=== PATIENT | female | born 1990 | race Caucasian/White ===

== ENCOUNTER 2025-01-23 18:12 | Emergency (ER) | payer OTHER, SELFPAY ==
--- NOTE | ~2025-01-23 | CT_ITS ---
CT abdomen pelvis w con Clinical History: RLQ abdominal pain . Comparison: None Technique: Axial images lung bases to symphysis pubis 100 mL Omnipaque 350 Coronal, sagittal reformats CT images acquired with automatic exposure control for dose reduction DLP: 1363 mGy-cm Findings: Lung bases: Clear. Visualized heart and pericardium: Unremarkable. Liver: Steatosis. Gallbladder: Removed. Spleen: Unremarkable. Pancreas: Unremarkable. Adrenal glands: Unremarkable. Kidneys: Right kidney- No hydronephrosis. No renal stones. Left kidney- No hydronephrosis. No renal stones. Distal esophagus/stomach: Unremarkable. Small bowel loops: Normal caliber and wall thickness. Colon: Normal caliber and wall thickness. Appendectomy. Nodes: No enlarged nodes. Peritoneum: No ascites. No free air. Urinary bladder: Unremarkable. Uterus: Unremarkable. Adnexa: No masses. Small cyst right side. Bones: No acute bony abnormality. Soft tissues: Unremarkable. Aorta: No aneurysm or dissection. IVC: Unremarkable. Main portal vein/SMV/splenic vein: Patent. IMPRESSION: 1. No acute findings. Reviewed, dictated and finalized at location [facility]. [facility] [employer] IMPRESSION: 1. No acute findings.
[2025-01-23 18:18] VITALS: BP 143/99; PULSE 87; RESP 16; TEMP 36.6; O2SAT 99
[2025-01-23 18:49] VITALS: BP 145/92; PULSE 74; RESP 20; O2SAT 98
[2025-01-23 18:53] LABS: BEDSIDEPREGUCG Negative (Negative)
[2025-01-23 18:54] LABS: Hematocrit 42.1 % (37.0-47.0); Hemoglobin 13.8 g/dL (12.0-15.0); Immature Granulocyte Percent A 0.2 % (0-0.5); Lymphocytes Absolute Auto 3.28 K/mm3 (0.9-3.2); Mean Corpuscular HGB Conc 32.8 g/dl (32-36); Mean Corpuscular Hemoglobin 27.7 pg (26-34); Mean Corpuscular Volume 84.5 fl (80-100); Nucleated Red Blood Cells Absolute Auto 0.000 K/mm3 (0.0-0.012); Nucleated Red Blood Cells Perc 0.0 % (0.0-0.2); Platelet Count Result 318 k/mm3 (150-375); Red Blood Count 4.98 M/mm3 (4.2-5.4); White Blood Count 9.5 K/mm3 (4.5-10.0)
[2025-01-23 18:59] LABS: Add Urine Microscopic? NO; Appearance Urine Clear (Clear); Glucose Urine UA Negative (Negative); Leukocyte Esterase Ur Negative LEU/UL (Negative); Nitrate Urine Negative (Negative); Specific Grav Ur 1.005 (1.001-1.035)
[2025-01-23 19:07] LABS: Alanine Aminotransferase 22 U/L (6-35); Albumin Level 4.5 g/dL (3.5-5.1); Alkaline Phosphatase 55 U/L (38-126); Anion Gap 8 mmol/L (4-12); Aspartate Amino Transferase 20 U/L (14-36); Bilirubin,Total 0.4 mg/dL (0.2-1.3); Blood Urea Nitrogen 10 mg/dL (7-17); Calcium 9.2 mg/dL (8.4-10.2); Carbon Dioxide 24 mmol/L (22-30); Chloride 107 mmol/L (98-107); Estimated CRCL calculation 106 ml/min; Estimated Glomerular Filt Rate > 60; Glucose 94 mg/dL (65-110); Lipase 66 U/L (23-300); Potassium 4.3 mmol/L (3.4-5.0); Sodium 139 mmol/L (137-145); Total Protein 7.6 g/dL (6.3-8.2)
--- NOTE | 2025-01-23 19:45 | ED.ABDPAIN ---
HPI - Abdominal Pain General Chief Complaint: Abdominal Pain Stated Complaint: abd pain Time Seen by Provider: 01/23/25 18:53 History of Present Illness HPI narrative: Patient is a 34-year-old female who presents to the ER with abdominal pain. She reports she has chronic stomach pain but it became severe this morning. Patient reports she took Tylenol, Zofran, promethazine, and Bentyl today without much relief. She endorses a history of fibromyalgia, hypothyroidism, and irritable bowel syndrome. Patient denies any marijuana or alcohol use. She also denies any vomiting, recent fevers, or urgency/burning with urination. Related Data Allergies Allergy/AdvReac Type Severity Reaction Status Date / Time propranolol AdvReac Intermediate Rash Verified 01/23/25 18:14 quetiapine (From Seroquel) AdvReac Intermediate Rash Verified 01/23/25 18:14 Review of Systems Review of Systems: All systems reviewed & are unremarkable except as noted in HPI and below Exam Narrative: GENERAL: Well appearing, obese, non-toxic, in no acute distress. HEAD: Normocephalic, atraumatic. NECK: Supple. No adenopathy, no masses. RESPIRATORY: Airway patent, respirations nonlabored. Clear to auscultation bilaterally, no rales, rhonchi, wheezing. CARDIOVASCULAR: Regular rate and rhythm without murmurs, rubs, or gallops. Peripheral pulses 2+ and equal bilaterally. ABDOMINAL: Soft, generalized tenderness, nondistended. Normoactive BS. MUSCULOSKELETAL: Moves all extremities. Strength/ROM intact without gross deformities. SKIN: Warm, dry, normal color. No rashes. NEURO: A&O X3. Speech clear. Cranial nerves II-XII intact. No ataxic movements. PSYCHIATRIC: Appropriate mood and affect. Normal interaction. Course Vital Signs Vital signs: Vital Signs Temperature 36.6 C 01/23/25 18:18 Pulse Rate 87 01/23/25 18:18 Respiratory Rate 16 01/23/25 18:18 Blood Pressure 143/99 H 01/23/25 18:18 Pulse Oximetry 99 01/23/25 18:18 Oxygen Delivery Room Air 01/23/25 18:18 Temperature 36.6 C 01/23/25 18:18 Pulse Rate 81 01/23/25 21:11 Respiratory Rate 20 01/23/25 21:11 Blood Pressure 123/86 01/23/25 21:11 Pulse Oximetry 98 01/23/25 21:11 Oxygen Delivery Room Air 01/23/25 18:18 MDM - Abdominal Pain MDM Narrative Medical decision making narrative: Patient is a 34-year-old female who presents to the ER with abdominal pain. She reports she has chronic stomach pain but it became severe this morning. Patient reports she took Tylenol, Zofran, promethazine, and Bentyl today without much relief. She endorses a history of fibromyalgia, hypothyroidism, and irritable bowel syndrome. Patient denies any marijuana or alcohol use. She also denies any vomiting, recent fevers, or urgency/burning with urination. Labs Ordered: CBC, CMP, lipase, UA, drug screen Imaging Ordered: CT abdomen pelvis Medications Ordered: L normal saline IV bolus, morphine 4 mg IV x2, Reglan 10 mg IV, Pepcid 20 mg IV, Benadryl 25 mg, Zofran 8 mg IV, Haldol 5 mg IM Results: Patient's CT scan indicates hepatic steatosis, cholecystectomy, right ovarian cyst measuring 2.2 x 2.3 cm Diagnosis: Acute on chronic abdominal pain Consults: Gastroenterology (outpatient), already established Patient Education/Shared MDM: Results of lab work and imaging shared with patient. She continues to endorse nausea and abdominal pain. It was explained to patient that she could get a repeat dose of narcotics here in the ER but she would not be given a prescription, as it is unclear what is causing her pain. Patient was offered Haldol to treat her nausea and Bentyl for the ongoing abdominal pain. Patient endorses improvement of symptoms following medication administration. Patient strongly advised to maintain hydration status upon discharge and follow-up with her manager sound as soon as possible. She was also advised to follow-up with her OBGYN regarding her ovarian cyst. Patient will be discharged home with a prescription for Reglan. Strict return precautions provided. Patient verbalized understanding and is in agreement with plan. Vital signs stable at time of discharge. All questions answered. Differential Diagnosis Differential diagnosis: Likely abdominal pain, calculus of kidney, constipation, diverticulitis and gastroenteritis Lab Data Attestation: I reviewed the patient's lab results. 01/23/25 18:46 01/23/25 18:46 Labs: Lab Results 11/01/25 11/01/25 11/01/25 Range/Units 18:46 18:49 19:55 WBC 9.5 (4.5-10.0) K/mm3 RBC 4.98 (4.2-5.4) M/mm3 Hgb 13.8 (12.0-15.0) g/dL Hct 42.1 (37.0-47.0) % MCV 84.5 (80-100) fl MCH 27.7 (26-34) pg MCHC 32.8 (32-36) g/dl RDW 13.2 (11.5-14.5) % Plt Count 318 (150-375) k/mm3 MPV 10.6 H (7.4-10.4) fl Immature Gran % (Auto) 0.2 (0-0.5) % Neut % (Auto) 54.1 (45.5-73.1) % Lymph % (Auto) 34.6 (18.3-44.2) % Anderson % (Auto) 9.2 H (2.6-8.5) % Eos % (Auto) 1.3 (0-4.4) % Baso % (Auto) 0.6 (0.2-1.2) % Lymph # (Auto) 3.28 H (0.9-3.2) K/mm3 Anderson # (Auto) 0.9 H (0.1-0.6) K/mm3 Eos # (Auto) 0.1 (0-0.3) K/mm3 Baso # (Auto) 0.1 (0.0-0.1) K/mm3 Abs Immat Gran (auto) 0.02 (0.00-0.031) K/mm3 Absolute Neuts (auto) 5.1 (1.3-6.7) K/mm3 Absolute Nucleated RBC 0.000 (0.0-0.012) K/mm3 Nucleated RBC % 0.0 (0.0-0.2) % Sodium 139 (137-145) mmol/L Potassium 4.3 (3.4-5.0) mmol/L Chloride 107 (98-107) mmol/L Carbon Dioxide 24 (22-30) mmol/L Anion Gap 8 (4-12) mmol/L BUN 10 (7-17) mg/dL Creatinine 0.70 (0.7-1.0) mg/dL Estim Creat Clear Calc 106 ml/min Estimated GFR > 60 (59 - ) Glucose 94 (65-110) mg/dL Calcium 9.2 (8.4-10.2) mg/dL Total Bilirubin 0.4 (0.2-1.3) mg/dL AST 20 (14-36) U/L ALT 22 (6-35) U/L Alkaline Phosphatase 55 (38-126) U/L Total Protein 7.6 (6.3-8.2) g/dL Albumin 4.5 (3.5-5.1) g/dL Lipase 66 (23-300) U/L Urine Color Yellow (Yellow) Urine Appearance Clear (Clear) Urine pH 6.5 (5.0-9.0) Ur Specific Pearson 1.005 (1.001-1.035) Urine Protein Negative (Negative) mg/dL Urine Glucose (UA) Negative (Negative) mg/dL Urine Ketones Negative (Negative) mg/dL Ur Blood (Man) Negative (Negative) Urine Nitrate Negative (Negative) Urine Bilirubin Negative (Negative) Urine Urobilinogen 0.2 (<2.0) mg/dL Leukocyte Esterase Rfl Negative (Negative) VENANCIO/UL POC Urine HCG, Qual Negative (Negative) Urine Opiates Screen Negative (Negative) Urine Methadone Screen Negative (Negative) Ur Barbiturates Screen Negative (Negative) Ur Phencyclidine Scrn Negative (Negative) Ur Amphetamine Screen Negative (Negative) U Benzodiazepines Scrn Negative (Negative) Urine Cocaine Screen Negative (Negative) U Cannabinoids Screen Negative (Negative) Imaging Data Attestation: I personally reviewed and interpreted this imaging study as follows: Radiologist's impression: Patient's CT scan indicates hepatic steatosis, cholecystectomy, right ovarian cyst measuring 2.2 x 2.3 cm Discharge Plan Discharge Clinical Impression: Acute exacerbation of chronic abdominal pain, Nausea & vomiting, Hepatic steatosis, Ovarian cyst, Irritable bowel syndrome (IBS) Patient Disposition: Home Condition: Stable Instructions: Antibiotic Form, Abdominal Pain (ED) Additional Instructions: Please return to the ER with any worsening symptoms. Follow-up with your manager sound as soon as possible. Please follow-up with your OBGYN regarding your ovarian cyst. Take all medications as prescribed, including regularly scheduled medications. You may take Reglan as needed for nausea control. Please remember to drink lots of water. Patient Language: Hungarian Prescriptions: New metoclopramide HCl [Reglan] 10 mg tablet 10 mg PO Q6H PRN (Reason: nausea and vomiting) Qty: 30 0RF Follow-up/Referrals: Shanthi,Tara Darden GALLERY OR MUSEUM TECHNICIAN [Primary Care Provider, Unknown] Time of Disposition: 23:41
[2025-01-23] MEDS: FAMOTIDINE 20 MG/2 ML VIAL IV PUSH (19:57)
[2025-01-23] MEDS: METOCLOPRAMIDE HCL INJ 10 MG/2 ML VIAL IV PUSH (19:57)
[2025-01-23] MEDS: MORPHINE SULFATE (*CRX) 4 MG/ML INJ IV PUSH ×2 (19:57→23:42)
[2025-01-23] MEDS: SODIUM CHLORIDE 0.9% IV 1,000 ML 999 ML IV CONT (19:57)
[2025-01-23 20:02] VITALS: BP 138/94; PULSE 83; RESP 16; O2SAT 98
[2025-01-23 20:23] LABS: Cannabinoid Screen Urine Negative (Negative)
--- OUTSIDE RECORDS SUMMARY | 2025-01-23 21:03 | XMS_ITS | Encounter Summary ---
Author Organization [facility] Address [address] [place] [id number] Care Team Providers Care Algologist Name Role Phone Tara Maki [facility] Primary Care Provider [phone] Encounter Details Date Type Department Care Team (Late st Contact Info) Description 12/16/2024 Results Follow-Up [facility] [address] [place], [place] [id number] Tara Maki [facility] [address] [place] [address] CBC W/DIFF AUTOMATED, IRON SAT PANEL (IRON,IBC,%SAT), VITAMIN B-12, FERRITIN Social History Tobacco Use Types Packs/Day Years Used Date Smoking Tobacco: Never Passive Smoke Exposure: Never Smokeless Tobacco: Never Alcohol Use Standard Drinks/Week Comments Never 0 (1 standard drink = 0.6 oz pur e alcohol) PHQ-2 Answer Date Recorded Patient Health Questionnaire-2 Score 3 11/19/2024 Comments Unknown Sex and Gender Information Value Date Recorded Sex Assigned at Female 10/27/2024 5:46 PM CDT Legal Sex Female 1:17 PM CDT Gender Identity Not on file Sexual Orientation Not on file documented as of this encounter Plan of Treatment Upcoming Encounters Date Type Department Care Team (Late st Contact Info) Description 02/09/2025 2:40 PM BUILDING ASSOCIATE Office Visit [facility] [address] [phone] Tara Maki FNP [address] [place] [address] Markus Franco MD [address] [place] [id number] documented as of this encounter Visit Diagnoses Not on filedocumented in this encounter Additional Health Concerns Infection Onset Date Last Indicated Resolved Time COVID-19 Rule Out 12/21/2024 12/21/2024 12/21/2024 4:33 PM CDT Assessment Noted Time PHQ-9 Depression Total Score: 15 025 1:22 PM CDT documented as of this encounter Care Teams Algologist Relationship Specialty Start Date End Date Tara Maki FNP [address] [place] [address] PCP - General Nurse Practitioner Family 11/19/24 documented as of this encounter
--- OUTSIDE RECORDS SUMMARY | 2025-01-23 21:03 | XMS_ITS | Clinical Summary ---
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 NG/ML METHADONE- 200 NG/ML OPIATE- 100 NG/ML OXYCODONE- 100 NG/ML PCP- 25 NG/ML THC- 50 NG/ML TCA- 300 NG/ML URINE SPECIMEN / Unknown 12/21/2024 3:45 PM CDT Lilian Dial MD URINE ORDERABLES Final Res ult Performing Organization Address [facility]/ZIP Co de Phone Number [facility] [address] [place] [address], [place] [phone] * TEST URINE (12/21/2024 3:45 PM CDT) URINE HCG TEST NEGATIVE NEGATIVE 12/21/2024 4:25 PM CDT [facility] Comment: VERY DILUTE URINE SPECIMENS MAY NOT CONTAIN STOCK REPAIRER LEVELS OF HCG. IF IS STILL SUSPECTED, A SERUM HCG TEST IS RECOMMENDED. URINE SPECIMEN FROM URETHRA / Unknown 12/21/2024 3:45 PM CDT Lilian Dial MD URINE ORDERABLES Final Res ult Performing Organization Address [facility]/ZIP Co de Phone Number [facility] [address] [place] [address], [place] [phone] * (ABNORMAL) URINALYSIS, AUTO, COMPLETE (12/21/2024 3:45 PM CDT) COLOR (U) DARK YELLOW 12/21/2024 4:27 PM CDT [facility] TRANSPARENCY CLEAR 12/21/2024 4:27 PM CDT [facility] SPECIFIC GRAVITY (U) 1.020 1.000 - 1.030 12/21/2024 4:27 PM CDT [facility] U PH 6.0 5.0 - 9.0 12/21/2024 4:27 PM CDT [facility] LEUKOCYTES (U) NEGATIVE NEGATIVE 12/21/2024 4:27 PM CDT [facility] NITRITES NEGATIVE NEGATIVE 12/21/2024 4:27 PM CDT [facility] PROTEIN RANDOM (U) NEGATIVE NEGATIVE 12/21/2024 4:27 PM CDT [facility] GLUCOSE (U) NEGATIVE NEGATIVE 12/21/2024 4:27 PM CDT [facility] KETONES MG/DL (U) NEGATIVE NEGATIVE 12/21/2024 4:27 PM CDT [facility] BILIRUBIN (U) NEGATIVE NEGATIVE 12/21/2024 4:27 PM CDT [facility] BLOOD (U) 3+(A) NEGATIVE 12/21/2024 4:27 PM CDT [facility] WBC/HPF 0-5 0 - 5 /HPF 12/21/2024 4:27 PM CDT [facility] RBC/HPF 50-100 0 - 5 /HPF 12/21/2024 4:27 PM CDT [facility] EPI/HPF FEW /HPF 12/21/2024 4:27 PM CDT [facility] URINE SPECIMEN OBTAINED BY CLEAN CATCH PROCEDURE / Unknown 12/21/2024 3:45 PM CDT us Lilian Dial MD URINE ORDERABLES Final Res ult [facility] [address] [place] [address], * SYPHILIS AB (DIAGNOSTIC) WITH CASCADING REFLEX (12/16/2024 10:19 AM CDT) SYPHILIS IGG IGM AB NON-REACTI VE NON-REACTI VE 12/16/2024 3:08 PM CDT [facility] Comment: No serologic evidence of syphilis. No follow-up necessary unless clinically indicated. 12/16/2024 10:1 9 AM CDT Kelin Garza LABORATORY Final Resu lt Performing Organization Address City/[facility]/ZIP Co de Phone Number [facility] [address] [place] [address], [place] [phone] * HIV 1 ANTIGEN(S), WITH HIV-1 AND HIV-2 ANTIBODIES (12/16/2024 10:19 AM CDT) Only the most recent of2 resultswithin the time period is included. HIV 1/2 AB+ HIV1 P24 AG NON-REACTI VE NON-REACTI VE 12/16/2024 3:41 PM CDT [facility] 12/16/2024 10:1 9 AM CDT [facility] Final Resu lt Performing Organization Address [facility] Co de Phone Number [facility] [address] [place] [address], [place] [phone] * IRON SAT PANEL (IRON,IBC,%SAT) (12/16/2024 10:19 AM CDT) IRON 90 50.0 - 170.0 MCG/DL 12/16/2024 2:48 PM CDT [facility] IRON BINDING CAPACITY 402 250 - 450 MCG/DL 12/16/2024 2:48 PM CDT [facility] IRON SATURATION 22 20 - 55 % 2:48 PM CDT [facility] 12/16/2024 10:1 9 AM CDT us Tara Maki CLINICAL INFORMATICS DIRECTOR LABORATORY Final Result [facility] [address] [place] [address], [place] [phone] * VITAMIN B-12 (12/16/2024 10:19 AM CDT) VITAMIN B12 S/P/B 511 254 - 1,320 PG/ML 12/16/2024 3:13 PM CDT [facility] 12/16/2024 10:1 9 AM CDT us Tara Maki CLINICAL INFORMATICS DIRECTOR LABORATORY Final Result Performing Organization Address [facility] Co de Phone Number [facility] [address] [place] [address], [place] [phone] * HEPATITIS C ANTIBODY (12/16/2024 10:19 AM CDT) HEPATITIS C AB NON-REACTI VE NON-REACTI VE 12/16/2024 3:40 PM CDT [facility] 12/16/2024 10:1 9 AM CDT us Kelin Garza DO LABORATORY Final Resu lt Performing Organization Address City/[facility]/ZIP Co de Phone Number [facility] [address] [place] [address], [place] [phone] * HEPATITIS B SURFACE AG, EIA (12/16/2024 10:19 AM CDT) HEPATITIS B SURFACE AG NON-REACTI VE NON-REACTI VE 12/16/2024 3:07 PM CDT [facility] 12/16/2024 10:1 9 AM CDT us Kelin Garza DO LABORATORY Final Resu lt [facility] [address] [place] [address], [place] [phone] * FERRITIN (12/16/2024 10:19 AM CDT) FERRITIN 20.7 8.0 - 388.0 NG/ML 12/16/2024 2:48 PM CDT [facility] 12/16/2024 10:1 9 AM CDT [facility] Final Result Performing Organization Address [facility] Co de Phone Number [facility] [address] [place] [address], * HEMOGLOBIN, GLYCOSYLATED (11/26/2024 9:25 AM CDT) HGB A1C 4.9 <5.7 % 11/26/2024 3:53 PM CDT [facility] Comment: ADA GUIDELINES 2010 5.7 TO 6.4% INCREASED RISK OF DIABETES > OR = 6.5% CONSISTENT WITH DIABETES ESTIMATED AVG GLUCOSE 94 mg/dL 11/26/2024 3:53 PM CDT [facility] 11/26/2024 9:25 AM CDT us Tara Maki CLINICAL INFORMATICS DIRECTOR LABORATORY Final Result Performing Organization Address City/[facility]/ZIP Co de Phone Number [facility] [address] [place] [address], [place] [phone] * (ABNORMAL) LIPID PANEL (11/26/2024 9:25 AM CDT) CHOLESTEROL 171 <200 MG/DL 11/26/2024 2:42 PM CDT [facility] TRIGLYCERIDES 220(H) <150 MG/DL 11/26/2024 2:42 PM CDT [facility] HDL 35(L) >40.0 MG/DL 11/26/2024 2:42 PM CDT [facility] LDL (CALCULATED) 92 <100 MG/DL 11/26/2024 2:42 PM CDT [facility] Comment:CALCULATED USING THE FRIEDEWALD EQUATION NON HDL CHOLESTEROL 136(H) <130 MG/DL 11/26/2024 2:42 PM CDT [facility] CHOL/HDL RATIO 4.9(H) 0.0 - 4.5 11/26/2024 2:42 PM CDT [facility] VLDL CALCULATION 44 5 - 55 MG/DL 11/26/2024 2:42 PM T [facility] LIPID INTERPRETATION 11/26/2024 2:42 PM CDT [facility] Comment: [facility] CONCENSUS REPORT RECOMMENDATIONS: ADULT CHILD LOW RISK: CHOLESTEROL <200 <170 TRIGLYCERIDE <150 --- HDL >=60 --- LDL <100 <110 BORDERLINE: CHOLESTEROL 200-239 170-199 TRIGLYCERIDE 150-199 --- HDL 40-59 --- LDL 100-159 110-129 HIGH RISK: CHOLESTEROL >=240 >=200 TRIGLYCERIDE >=200 --- HDL <40 --- LDL >=160 >=130 11/26/2024 9:25 AM CDT Tara Maki CLINICAL INFORMATICS DIRECTOR LABORATORY Final Result [facility] [address] [place] [address], [place] [phone] * THYROID STIM HORMONE TSH (11/26/2024 9:25 AM CDT) TSH 0.933 0.358 - 3.74 uIU/ML 11/26/2024 2:42 PM CDT [facility] Comment: HIGH DOSES OF BIOTIN MAY INTERFERE WITH THIS TEST RESULT. CORRELATION TO CLINICAL HISTORY AND PRESENTATION RECOMMENDED. 11/26/2024 9:25 AM CDT [facility] Final Result [facility] [address] [place] [address], [place] [phone] * INSULIN,TOTAL (11/26/2024 9:25 AM CDT) [facility] INSULIN 6.9 <=18.4 uIU/mL 12/04/2024 10:52 AM CDT [employer] [facility]ARZANE[facility]ER Comment: Risk: Optimal < or = 18.4 Moderate NA High >18.4 Adult cardiovascular event risk category cut points (optimal, moderate, high) are based on Insulin Reference interval studies performed at [facility] in 2021. Test Performed by [employer], [facility], [address] [place] [address] Pierre Lau M.D., Ph.D., Director of Laboratories , [facility] [id number] 11/26/2024 9:25 AM CDT [facility] Final Result Performing Organization Address City/[facility]/ZIP Co de Phone Number [place] [id number] [place], [place] , [place] [phone] * (ABNORMAL) URINALYSIS AUTO DIP (10/27/2024) [facility] COLOR (U) YELLOW YELLOW [facility] (201), [place] TRANSPARENCY CLEAR CLEAR MG-HEAL [facility] (201), [place] GLUCOSE (U) NEGATIVE NEGATIVE MG/DL [facility] (201), [place] BILIRUBIN (U) NEGATIVE NEGATIVE [facility] (201), [place] KETONES MG/DL (U) NEGATIVE NEGATIVE MG/DL [facility] (201), [place] SPECIFIC GRAVITY (U) >=1.030 1.001 - 1.035 [facility] (201), [place] BLOOD (U) MODERATE (2+ Hemolyzed, About 50 rbc/uL)(A) NEGATIVE [facility] (201), [place] U PH 5.5 5.0 - 9.0 [facility] ([facility]), [place] PROTEIN (U) NEGATIVE NEGATIVE mg/dL [facility] (201), [place] UROBILINOGEN 0.2 0.2 - 1.0 EU/dL = mg/dL [facility] (201), [place] NITRITES NEGATIVE NEGATIVE MG/DL [facility] (201), [place] LEUKOCYTES (U) NEGATIVE NEGATIVE [facility] (201), [place] URINE SPECIMEN OBTAINED BY CLEAN CATCH PROCEDURE / Unknown 10/27/2024 us [facility] URINE ORDERABLES Final Re sult 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
--- OUTSIDE RECORDS SUMMARY | 2025-01-23 21:03 | XMS_ITS | Patient Health Record ---
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 Name Role Phone Tara Cardenas APRN Primary Care Provider Raoul Julien Unavailable [phone] Jackelin Barrera Unavailable [phone] Miguel Hopkins Unavailable [phone] Carlos Eduardo, Cherelle Unavailable [phone] Allergies Allergen (clinical drug ingredient) Drug/Non Drug Allergy documented on EMR Reaction Allergy Type Onset Date Status quetiapine SEROquel rash Drug Allergy Active propranolol Propranolol Unknown Drug Allergy Act payal Results Component Value Reference Range Flag Notes UDT Reviewed date:09/21/2024 11:39:58 AM Interpretation: Performing Lab: Notes/Report: Amphetamine (AMP) n 0 - 1000 ng/ml Buprenorphine (BUP) n 0 - 10 ng/ml Oxazepam (BZO) p 0 - 300 ng/ml Cocaine (KAM) n 0 - 300 ng/ml Methamphetamine (mAMP) n 0 - 300 ng/ml Methylenedioxymethamphetamine (MDMA) n 0 - 500 ng /ml Morphine (MOP) n 0 - 25 ng/ml Methadone (MTD) n 0 - 300 ng/ml Oxycodone (OXY) n 0 - 300 ng/ml THC n 0 - 50 ng/ml x n 0 - 1000 ng/ml x n 0 - 1000 ng/ml x n 0 - 300 ng/ml x n 0 - 300 ng/ml Benzodiazepines Reviewed date:09/29/2024 10:10:03 AM Interpretation: Performing Lab:[address] [place] [address], [address] [place] [address], Director - [id number] Notes/Report: An exception occurred while processing this report and so it has incomplete data. Please contact [email or web address] Support for assistance. Not Medicated Consistent Not Medicated Inconsistent Not Medicated Consistent Not Medicated Consistent Not Medicated Consistent Medicated Inconsistent Not Medicated Consistent Not Medicated Consistent Not Medicated Consistent Not Medicated Consistent 7-Aminoclonazepam NEGATIVE 20.0 ng/mL Temazepam NEGATIVE 40.0 ng/mL Oxazepam NEGATIVE 40.0 ng/mL Midazolam NEGATIVE 40.0 ng/mL Lorazepam NEGATIVE 40.0 ng/mL Nordiazepam NEGATIVE 40.0 ng/mL Diazepam NEGATIVE 40.0 ng/mL Clonazepam NEGATIVE 20.0 ng/mL Hydroxyalprazolam 32.7 20.0 ng/mL POSITIVE Alprazolam NEGATIVE 20.0 ng/mL PDF Report [email or web address] Reason For Referral No Information Medications Medication SIG (Take, Route, Frequency, Duration) Notes Start Date End Date Status Belsomra 10 MG Tablet 1 tablet at bedtim e as needed Orally Once a day; Duration: 30 days 01/06/2025 02/05/2025 Active Pregabalin 200 MG Capsule 1 capsule Orally twice a day Fibromyalgia Active ARIPiprazole 5 MG Tablet 1 tablet Oral Once a day; Duration: 30 days Active SUMAtriptan Succinate 100 MG Tablet 1 tablet as needed, may take second dose at least 2 hours after first dose up to 2 tablets per day as needed Orally Once a day As needed Active Spravato (84 MG Dose) 28 MG/DEVICE Solution Therapy Pack 3 sprays in each nostril Nasally twice a week; Duration: 1 01/06/2025 Active Qulipta 30 MG Tablet 2 tablet Oral daily ; Duration: 30 days Active Levothyroxine Sodium 75 MCG Tablet 1 tablet in the morning on an empty stomach Orally Once a day Active Venlafaxine HCl ER 150 MG Capsule Extended Release 24 Hour 1 capsule with food Orally Once a day; Duration: 01/06/2025 Active lamoTRIgine 200 MG Tablet 0.5 tablet Orally Once a day; Duration: days 01/06/2025 Active busPIRone HCl 10 MG Tablet 2 tablet Orally 3 times a day; Duration: 30 01/06/2025 02/05/2025 Active LORazepam 1 MG Tablet 1 tablet Oral Once a day; Duration: 30 days As needed 01/06/2025 Active hydrOXYzine HCl 50 MG Tablet 1 tablet as needed Orally twice a day; Duration: 30 days As needed 01/06/2025 Active Prazosin HCl 2 MG Capsule 1 CAPSULE AT BEDTIME ORALLY ONCE A DAY; Duration: 30 Active Social History Tobacco Use: Social History Observation Description Date Details (start date - stop date) Never Smoker NA - NA Sex Assigned At : Social History Observation Description Sex Assigned At Female Social History Miscellaneous: Social Info Question Answer Notes Safety issues: Are there any firearms in the house? No Social History Social Info Question Answer Notes Household: Marital Status: Single Number of Adults in household: 1 Number of Children in Household: 0 Level of Education: Finished High School Household: Social Info Question Answer Notes Household Number of adults in household: Lives in residential care group facility Drug/Alcohol: Social Info Question Answer Notes Drugs Have you used drugs other than those for medical reasons in the past 12 months? Yes Methamphetamine? No Crack? No LSD? No Ecstacy? No Prescription opiates? No Marijuana? Yes Ketamine? No PCP? No Is there a minor (18 years or younger) at risk at home? No Are you still using? No AUDIT-C (Standard) Did you have a drink containing alc ohol in the past year? No Interpretation Negative Caffeine Intake: 1-2 cups per day Tobacco Use: Social Info Question Answer Notes Tobacco Control (Standard) Tobacco use: Nonsmoker Section Notes: Marijuana use: Quit Almost A Year Ago, Last Used November Living situation: Living With Others Since September 08 Marijuana use: Quit Almost A Year Ago, Last Used November Living situation: Living With Others Since September 08 Marijuana use: Quit Almost A Year Ago, Last Used November Living situation: Living With Others Since September 08 Living situation: Moved upstairs for less privacy and reduced isolation Marijuana use: Quit Almost A Year Ago, Last Used November Living situation: Living With Others Since September 08 Problems Problem Type SNOMED Code ICD Code Onset Dates Problem Status W/U Status Risk Notes Problem Severe recurrent major depression without psychotic features (49163272) Major depressive disorder, recurrent severe without psychotic features (F33.2) Active confirmed Problem Post-traumatic stress disorder (65151074) Post-traumatic stress disorder, unspecified (F43.10) Active confirmed Problem Insomnia disorder related to another mental disorder (62827574) Insomnia due to other mental disorder (F51.05) Active confirmed improving Problem Borderline personality disorder (71763038) Borderline personality disorder (F60.3) Active confirmed Problem Obstructive sleep apnea syndrome (disorder) (85477787) Obstructive sleep apnea (adult) (pediatric) (G47.33) Active confirmed Problem Obsessive-comp ulsive disorder (602224465) Mixed obsessional thoughts and acts (F42.2) Active confirmed improving Problem Generalized anxiety disorder (36363926) ESDRAS (generalized anxiety disorder) (F41.1) Active confirmed needs improvement Problem Nightmares (103027262) Nightmares (F51.5) Active confirmed improving Problem Severe recurrent major depression without psychotic features (24010083) Severe episode of recurrent major depressive disorder, without psychotic features (F33.2) Active confirmed The differential diagnosis includes but is not limited to cluster C personality disorder Problem Panic disorder (251301976) Panic attacks (F41.0) Active confirmed Vital Signs Heart Rate 82 /min 01/20/2025 Oximetry 98 % 01/20/2025 Height-cm 154.94 cm 01/20/2025 Blood pressure diastolic 67 mm Hg 01/20/2025 Weight-kg 106.14 kg 01/06/2025 Height 61 in 01/20/2025 Blood pressure systolic 109 mm Hg 01/20/2025 Weight 234 lbs 01/06/2025 BMI 44.21 kg/m2 01/06/2025 Encounters Encounter Location Date Provider Diagnosis [facility], [place] [address] [address] 09/21/2024 Miguel Hopkins ESDRAS (generalized anxiety disorder) F41.1 ; Borderline personality disorder F60.3 ; Severe episode of recurrent major depressive disorder, without psychotic features F33.2 ; Panic attacks F41.0 ; Encounter for screening for depression Z13.31 ; Encounter for screening for cardiovascular disorders Z13.6 and Insomnia due to other mental disorder F51.05 [facility], [place] [address] [facility] [address] [place] [address] 09/30/2024 Miguel Hopkins ESDRAS (generalized anxiety disorder) F41.1 ; Mixed obsessional thoughts and acts F42.2 ; Borderline personality disorder F60.3 ; Severe episode of recurrent major depressive disorder, without psychotic features F33.2 ; Panic attacks F41.0 and Insomnia due to other mental disorder F51.05 [employer] [facility] [address] [address] 10/06/2024 Miguel Clubb Mixed obsessional thoughts and acts F42.2 ; Severe episode of recurrent major depressive disorder, without psychotic features F33.2 ; ESDRAS (generalized anxiety disorder) F41.1 ; Borderline personality disorder F60.3 ; Panic attacks F41.0 and Insomnia due to other mental disorder F51.05 [facility], [employer] [address] [address] 10/15/2024 Miguel Clubb Mixed obsessional thoughts and acts F42.2 ; Severe episode of recurrent major depressive disorder, without psychotic features F33.2 ; ESDRAS (generalized anxiety disorder) F41.1 ; Panic attacks F41.0 and Insomnia due to other mental disorder F51.05 [facility], [employer] [address] [address] 10/22/2024 Miguel Clubb Mixed obsessional thoughts and acts F42.2 ; Severe episode of recurrent major depressive disorder, without psychotic features F33.2 ; ESDRAS (generalized anxiety disorder) F41.1 ; Panic attacks F41.0 and Insomnia due to other mental disorder F51.05 [employer] [address] [address] 10/29/2024 Miguel Clubb Panic attacks F41.0 ; Severe episode of recurrent major depressive disorder, without psychotic features F33.2 ; ESDRAS (generalized anxiety disorder) F41.1 ; Insomnia due to other mental disorder F51.05 ; Mixed obsessional thoughts and acts F42.2 ; Nightmares F51.5 ; Laceration without foreign body of right wrist, initial encounter S61.511A and Intentional self-harm by unspecified sharp object, initial encounter X78.9XXA [employer] [address] [address] 11/05/2024 Raoul Whatley Severe episode of recurrent major depressive disorder, without psychotic features F33.2 ; Panic attacks F41.0 ; ESDRAS (generalized anxiety disorder) F41.1 ; Insomnia due to other mental disorder F51.05 ; Mixed obsessional thoughts and acts F42.2 ; Borderline personality disorder F60.3 ; Nightmares F51.5 ; Post-traumatic stress disorder, unspecified F43.10 and Intentional self-harm by unspecified sharp object, initial encounter X78.9XXA [facility] [employer] [place] [address] [facility] [address] [place] [address] 11/19/2024 Raoul Chacorta Severe episode of recurrent major depressive disorder, without psychotic features F33.2 ; Panic attacks F41.0 ; ESDRAS (generalized anxiety disorder) F41.1 ; Insomnia due to other mental disorder F51.05 ; Mixed obsessional thoughts and acts F42.2 and Borderline personality disorder F60.3 [facility] [employer] [facility] [address] [place] [address] 12/17/2024 Raoul Chacorta Severe episode of recurrent major depressive disorder, without psychotic features F33.2 ; Panic attacks F41.0 ; ESDRAS (generalized anxiety disorder) F41.1 ; Mixed obsessional thoughts and acts F42.2 ; Insomnia due to other mental disorder F51.05 ; Post-traumatic stress disorder, unspecified F43.10 ; Pain, unspecified R52 and Obstructive sleep apnea (adult) (pediatric) G47.33 [facility] [employer] [address] [facility] [address] [place] [address] 01/06/2025 Raoul Chacorta Severe episode of recurrent major depressive disorder, without psychotic features F33.2 ; Panic attacks F41.0 ; ESDRAS (generalized anxiety disorder) F41.1 ; Intentional self-harm by unspecified sharp object, initial encounter X78.9XXA and Obstructive sleep apnea (adult) (pediatric) G47.33 [facility] [employer] [place] [id number] [facility] [address] [facility] [address] [place] [address] 01/12/2025 Cherelle Halma Major depressive disorder, recurrent severe without psychotic features F33.2 [facility] [employer] [facility] [address] [place] [address] 01/18/2025 Miguel Hopkins Major depressive disorder, recurrent severe without psychotic features F33.2 [facility] [place] [address] [facility] [address] [facility] [address] [place] [address] 01/20/2025 Jackelin Barrera Major depressive disorder, recurrent severe without psychotic features F33.2 [facility], [facility] [address] [place] [address] 01/22/2025 [facility] [place], [facility] [address] [place] [address] 09/22/2024 Miguel Clubb [facility], [facility] [address] [place] [address] 10/19/2024 Miguel Clubb [facility], [facility] [address] [place] [address] 10/26/2024 Miguel Clubb [facility], [facility] [address] [place] [address] 10/29/2024 Miguel Clubb ESDRAS (generalized anxiety disorder) F41.1 ; Mixed obsessional thoughts and acts F42.2 and Insomnia due to other mental disorder F51.05 [facility], [facility] [address] [place] [address] 10/29/2024 Miguel Clubb [facility], [facility] [address] [place] [address] 10/29/2024 Miguel Clubb [facility], [facility] [address] [place] [address] 11/06/[facility] [address] [place] [address] 11/19/2024 [facility], [facility] [address] [place] [address] [facility], [facility] [address] [place] [address] 12/24/2024 Raoul [facility], [facility] [address] [place] [address] 10/19/2024 Miguel Clubb Severe episode of recurrent major depressive disorder, without psychotic features F33.2 ; Insomnia due to other mental disorder F51.05 ; Panic attacks F41.0 ; ESDRAS (generalized anxiety disorder) F41.1 and Mixed obsessional thoughts and acts F42.2 [facility], [facility] [address] [place] [address] 10/20/2024 Miguel Clubb [facility], [facility] [address] [place] [address] 11/06/2024 Miguel Clubb [facility], [facility] [address] [place] [address] 11/16/2024 Raoul Chacorta [facility], [facility] [address] [place] [address] 11/22/2024 Raoul Chacorta [facility], [facility] [address] [place] [address] 12/01/2024 Raoul Chacorta [facility], [facility] [address] [place] [address] 12/01/2024 Raoul Chacorta [facility], [facility] [address] [place] [address] 12/03/2024 Raoul Chacorta [facility], [facility] [address] [facility] [address] [place] [address] 12/22/2024 Raoul Rezaam Assessments Encounter Date Diagnosis (ICD Code) Assessment Notes Treatment Notes Treatment Clinical Notes Section Notes 09/21/2024 Borderline personality disorder (ICD-10 - F60.3) 09/21/2024 ESDRAS (generalized anxiety disorder) (ICD-10 - F41.1) 09/30/2024 Mixed obsessional thoughts and acts (ICD-10 - F42.2) 09/30/2024 ESDRAS (generalized anxiety disorder) (ICD-10 - F41.1) 10/06/2024 Mixed obsessional thoughts and acts (ICD-10 - F42.2) 10/06/2024 Severe episode of recurrent major depressive disorder, without psychotic features (ICD-10 - F33.2) 10/15/2024 Mixed obsessional thoughts and acts (ICD-10 - F42.2) 10/19/2024 Severe episode of recurrent major depressive disorder, without psychotic features (ICD-10 - F33.2) 10/22/2024 Mixed obsessional thoughts and acts (ICD-10 - F42.2) 10/29/2024 ESDRAS (generalized anxiety disorder) (ICD-10 - F41.1) 10/29/2024 Severe episode of recurrent major depressive disorder, without psychotic features (ICD-10 - F33.2) The differential diagnosis includes but is not limited to cluster C personality disorder 10/29/2024 Panic attacks (ICD-10 - F41.0) 11/05/2024 Severe episode of recurrent major depressive disorder, without psychotic features (ICD-10 - F33.2) The differential diagnosis includes but is not limited to cluster C personality disorder Longstanding history of depression since age 11. Symptoms include irritability, withdrawal, guilt, unworthiness, and hopelessness. Multiple hospitalizations for depression and anxiety. Recent medication changes and hospitalization for self-harm thoughts. - Continue Venlafaxine 150 mg in the morning. - Continue Lamotrigine 200 mg three times a day. - Continue Buspar 20 mg three times a day. - Continue supportive care and monitoring. 11/05/2024 Panic attacks (ICD-10 - F41.0) 11/19/2024 Severe episode of recurrent major depressive disorder, without psychotic features (ICD-10 - F33.2) The differential diagnosis includes but is not limited to cluster C personality disorder 12/17/2024 Severe episode of recurrent major depressive disorder, without psychotic features (ICD-10 - F33.2) The differential diagnosis includes but is not limited to cluster C personality disorder Patient reports worsening depression, loss of interest, persistent sadness, and low energy. Symptoms have increased in severity and are impacting daily functioning. Medication side effects have complicated management, leading to discontinuation of Latuda. Spravato (esketamine) was approved and is planned for initiation. - Start Spravato 84 mg twice a week. - Continue Venlafaxine. - Continue Lamotrigine. - Continue Lorazepam as needed, but avoid before Spravato treatment. - Continue Hydroxyzine 50 mg three times a day. - Discontinue Latuda due to side effects. spravato 84 mg twice a week for 4 weeks than once a week 12/17/2024 Panic attacks (ICD-10 - F41.0) 12/21/2024 Panic attacks (ICD-10 - F41.0) 01/06/2025 Severe episode of recurrent major depressive disorder, without psychotic features (ICD-10 - F33.2) The differential diagnosis includes but is not limited to cluster C personality disorder - Start Spravato 84 mg twice a week. Severe depression and hopelessness reported by the patient. Recent self-harm episode with right wrist laceration. Mood symptoms including sadness, remorse, grief, and anger. Improvement noted after group therapy and positive activities. Medication changes: Lamictal taper, Abilify added. - decrease Lamictal 100 mg. - Continue Abilify 5 mg. - Start Spravato treatment after intake and enrollment. - Refer to [facility] ([facility]) for depression management. - Encourage positive activities and emotional expression. 01/06/2025 Panic attacks (ICD-10 - F41.0) 01/12/2025 Major depressive disorder, recurrent severe without psychotic features (ICD-10 - F33.2) Continue medication as prescribed by primary psychiatric care provider Spravato administered per protocol. Patient was observed for two hours post-administration without incident. Patient tolerated the treatment well. Will continue treatment per established schedule. Patient instructed not to drive or operate machinery for the remainder of theday. 01/18/2025 Major depressive disorder, recurrent severe without psychotic features (ICD-10 - F33.2) Continue medication as prescribed by primary psychiatric care provider Spravato administered per protocol. Patient was observed for two hours post-administration without incident. Patient tolerated the treatment well. Will continue treatment per established schedule. Patient instructed not to drive or operate machinery for the remainder of theday. 01/20/2025 Major depressive disorder, recurrent severe without psychotic features (ICD-10 - F33.2) Continue medication as prescribed by primary psychiatric care provider Spravato administered per protocol. Patient was observed for two hours post-administration without incident. Patient tolerated the treatment well. Will continue treatment per established schedule. Patient instructed not to drive or operate machinery for the remainder of theday. 01/06/2025 ESDRAS (generalized anxiety disorder) (ICD-10 - F41.1) needs improvement 12/17/2024 ESDRAS (generalized anxiety disorder) (ICD-10 - F41.1) needs improvement Patient experiences anxious and racing thoughts, contributing to sleep disturbance and overall distress. - Continue Hydroxyzine 50 mg three times a day. - Continue Lorazepam as needed. 11/19/2024 Panic attacks (ICD-10 - F41.0) 11/05/2024 ESDRAS (generalized anxiety disorder) (ICD-10 - F41.1) needs improvement History of overwhelming anxiety, worsened by group gatherings and CRS programming. Symptoms include irritability, withdrawal, and paralyzing anxiety. Anxiety triggers identified as large gatherings and sexual topics in groups. Hospitalizations for anxiety and medication adjustments. - Start Xanax 0.5 mg, 1 tablet twice a day as needed for anxiety. - Stop lorazepam./clonaz epam - Stop Clonidine. - Continue hydroxyzine as needed. 10/29/2024 Mixed obsessional thoughts and acts (ICD-10 - F42.2) 10/29/2024 ESDRAS (generalized anxiety disorder) (ICD-10 - F41.1) needs improvement Discussed grounding techniques and nonpharmacological interventions. 10/22/2024 Severe episode of recurrent major depressive disorder, without psychotic features (ICD-10 - F33.2) 10/15/2024 Severe episode of recurrent major depressive disorder, without psychotic features (ICD-10 - F33.2) 10/19/2024 Insomnia due to other mental disorder (ICD-10 - F51.05) 10/06/2024 ESDRAS (generalized anxiety disorder) (ICD-10 - F41.1) 09/30/2024 Borderline personality disorder (ICD-10 - F60.3) 09/21/2024 Severe episode of recurrent major depressive disorder, without psychotic features (ICD-10 - F33.2) 09/21/2024 Panic attacks (ICD-10 - F41.0) 10/06/2024 Borderline personality disorder (ICD-10 - F60.3) 09/30/2024 Severe episode of recurrent major depressive disorder, without psychotic features (ICD-10 - F33.2) 10/15/2024 ESDRAS (generalized anxiety disorder) (ICD-10 - F41.1) 10/29/2024 Insomnia due to other mental disorder (ICD-10 - F51.05) 10/22/2024 ESDRAS (generalized anxiety disorder) (ICD-10 - F41.1) 10/19/2024 Panic attacks (ICD-10 - F41.0) 10/29/2024 Insomnia due to other mental disorder (ICD-10 - F51.05) improving Home sleep study pending. referral to sleep medicine placed by PCP. 11/05/2024 Insomnia due to other mental disorder (ICD-10 - F51.05) improving Difficulty falling asleep, frequent awakenings, nightmares. Sleep disturbance persists despite multiple medication trials. Home sleep study pending. - Start Ambien 10 mg at bedtime. - Stop melatonin. - Order home sleep study. 12/17/2024 Mixed obsessional thoughts and acts (ICD-10 - F42.2) improving 11/19/2024 ESDRAS (generalized anxiety disorder) (ICD-10 - F41.1) needs improvement 01/06/2025 Intentional self-harm by unspecified sharp object, initial encounter (ICD-10 - X78.9XXA) Self-inflicted laceration to right wrist using glass. Wound is healed and no further intervention required. - Monitor for recurrence of self-harm behaviors. - Continue emotional support and therapy. 01/06/2025 Obstructive sleep apnea (adult) (pediatric) (ICD-10 - G47.33) Sleep study revealed mild obstructive sleep apnea. No prescription or intervention required at present. - Monitor for worsening sleep apnea symptoms. Trouble staying asleep despite belsomra helping with sleep onset. Sleep issues linked to underlying depression. - Continue belsomra for sleep onset. - Monitor sleep quality as mood improves with Spravato. 11/05/2024 Mixed obsessional thoughts and acts (ICD-10 - F42.2) improving OCD symptoms present since age 11. Medication adjustments for OCD, including Venlafaxine and Fluvoxamine. Ongoing management with psychiatric medications. - Continue Venlafaxine and Buspar as part of OCD management. 12/17/2024 Insomnia due to other mental disorder (ICD-10 - F51.05) improving Patient reports difficulty sleeping, frequent awakenings, and inability to stay asleep. Insomnia is compounded by depression and PTSD symptoms. Previous trials of Trazodone, Ambien, and Doxepin were unsuccessful or caused adverse effects. - Start Belsomra 10 mg for sleep. - Continue Hydroxyzine 50 mg three times a day. 11/19/2024 Insomnia due to other mental disorder (ICD-10 - F51.05) improving 10/29/2024 Mixed obsessional thoughts and acts (ICD-10 - F42.2) improving 10/19/2024 ESDRAS (generalized anxiety disorder) (ICD-10 - F41.1) 10/22/2024 Panic attacks (ICD-10 - F41.0) 10/06/2024 Panic attacks (ICD-10 - F41.0) 10/15/2024 Panic attacks (ICD-10 - F41.0) 09/30/2024 Panic attacks (ICD-10 - F41.0) 09/21/2024 Encounter for screening for depression (ICD-10 - Z13.31) 09/21/2024 Encounter for screening for cardiovascular disorders (ICD-10 - Z13.6) 09/30/2024 Insomnia due to other mental disorder (ICD-10 - F51.05) 10/06/2024 Insomnia due to other mental disorder (ICD-10 - F51.05) 10/19/2024 Mixed obsessional thoughts and acts (ICD-10 - F42.2) 10/15/2024 Insomnia due to other mental disorder (ICD-10 - F51.05) 10/22/2024 Insomnia due to other mental disorder (ICD-10 - F51.05) 10/29/2024 Nightmares (ICD-10 - F51.5) improving 11/05/2024 Borderline personality disorder (ICD-10 - F60.3) Diagnosis of borderline personality disorder. Mood swings and difficulty with treatment noted. - Continue psychiatric medication regimen. - Monitor for mood instability. 12/17/2024 Post-traumatic stress disorder, unspecified (ICD-10 - F43.10) Patient reports worsening PTSD symptoms, including

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
--- OUTSIDE RECORDS SUMMARY | 2025-01-23 21:03 | XMS_ITS | Encounter Summary ---
Author Organization [facility] Address [facility] [place] [facility] [place] [address] Care Team Providers Care Local Sales Associate Name Role Phone None, Provider Primary Care Provider Neha Jones APRN Primary Care Provider [phone] Tara Maki Primary Care Provider [phone] Encounter Details Date Type Department Care Team (Late st Contact Info) Description 10/15/2024 MyChart Message Enc [facility] [address] [place] [address] Neha Araiza APRN [address] [place] [id number] Medication Social History Tobacco Use Types Packs/Day Years Used Date Smoking Tobacco: Never Passive Smoke Exposure: Never Smokeless Tobacco: Never PHQ-2 Answer Date Recorded Patient Health Questionnaire-2 Score 3 10/13/2024 Comments Unknown Sex and Gender Information Value Date Recorded Sex Assigned at Female 10/27/2024 5:46 PM CDT Legal Sex Female 1:17 PM CDT Gender Identity Not on file Sexual Orientation Not on file documented as of this encounter Progress Notes * Dionna Carlson LPN - 10/15/2024 1:15 PM CDT PA completed and sent to pt's plan. Waiting on response. * Dionna Carlson LPN - 10/15/2024 11:14 AM CDT Pregabalin last refilled on 07/16/2024 #30 Bhargav Carlos Last OV 10/13/2024 Ok to refill? PA pending on Zepbound. Waiting on office note to be completed. Please review/advise on Huang documented in this encounter Plan of Treatment Upcoming Encounters Date Type Department Care Team (Late st Contact Info) Description 02/09/2025 2:40 PM WIRE STITCHER Office Visit [facility] [address] [phone] Tara Maki FNP [address] [place] [address] Markus Franco MD [address] [place] [id number] documented as of this encounter Visit Diagnoses Not on filedocumented in this encounter Additional Health Concerns Infection Onset Date Last Indicated Resolved Time COVID-19 Rule Out 12/21/2024 12/21/2024 12/21/2024 4:33 PM CDT Assessment Noted Time PHQ-9 Depression Total Score: 15 025 3:00 PM CDT documented as of this encounter Care Teams Local Sales Associate Relationship Specialty Start Date End Date None, Provider, PCP - General UNKNOWN PHYSICIAN SPECIALTY 09/11/24 11/01/24 Neha Araiza APRN [address] [place], [place] [phone] PCP - General NURSE PRACTITIONER 11/02/24 11/18/24 Tara Maki FNP [address] [place] [address] PCP - General Nurse Practitioner Family 11/19/24 documented as of this encounter
[2025-01-23 21:11] VITALS: BP 123/86; PULSE 81; RESP 20; O2SAT 98
[2025-01-23] MEDS: ONDANSETRON INJ 4 MG/2 ML VIAL 8 MG IV PUSH (23:01)
[2025-01-23] MEDS: DICYCLOMINE HCL 10 MG CAPSULE 20 MG PO (23:41)
[2025-01-23] MEDS: HALOPERIDOL LACTATE 5 MG/ML VIAL IM (23:41)
[2025-01-24 00:05] VITALS: BP 141/91; PULSE 82; RESP 19; O2SAT 98
== END 2025-01-24 00:08 | disposition home or self-care (01) ==
PROVIDERS: Emergency Medicine; Emergency Provider Registered Nurse; PCP Nurse Practitioner Family
DX: R10.9 Unspecified abdominal pain (principal); G89.29 Other chronic pain; N83.201 Unspecified ovarian cyst, right side; K76.0 Fatty (change of) liver, not elsewhere classified; R11.2 Nausea with vomiting, unspecified; K58.9 Irritable bowel syndrome, unspecified; E03.9 Hypothyroidism, unspecified; M79.7 Fibromyalgia
CPT/HCPCS: 36415; 74177; 80053; 80307; 81003; 81025; 83690; 85025; 96361; 96372; 96374; 96375; 96376; 99284; A9270; J1200; J1630; J2270; J2405; J2765; J7030; Q9967

== ENCOUNTER 2025-02-15 19:03 | Emergency (ER) | payer MEDICARE, SELFPAY ==
--- NOTE | ~2025-02-15 | CT_ITS ---
EXAMINATION: CT abdomen pelvis w con DATE: 02/15/2025 23:00 INDICATION: Right lower quadrant abdominal pain. Nausea. Constipation. TECHNIQUE: Computed tomography (CT) of the abdomen and pelvis was performed with 100 mL Omnipaque 350 intravenous contrast. Automated exposure control and iterative reconstruction technique were employed. The dose-length product was 1579.89 mGy-cm. COMPARISON: CT abdomen and pelvis 01/23/2025 FINDINGS: The visualized portions of the lung bases demonstrate mild atelectasis. No pleural effusion. The heart size is normal. No pericardial effusion. The liver and spleen are normal. There are changes of cholecystectomy. The pancreas, adrenal glands, and kidneys are normal. There are no dilated loops of bowel. There are changes of appendectomy. There are no pathologically enlarged lymph nodes. There is an umbilical hernia containing fat. There is no ascites. There is mild thoracic and lumbar spondylosis. IMPRESSION: 1. Umbilical hernia containing fat. Reviewed, dictated and finalized at location E. [facility] [employer]
--- OUTSIDE RECORDS SUMMARY | 2025-02-15 19:05 | XMS_ITS | Encounter Summary ---
Author Organization [facility] Address [address] [place] [address] Care Team Providers Care Broadcasting Equipment Mechanic Name Role Phone Tara Maki [facility] Primary Care Provider [phone] Encounter Details Date Type Department Care Team (Late st Contact Info) Description 12/16/2024 Results Follow-Up [facility] [address] [place] [address] Tara Maki [facility] [address] [place] [address] CBC W/DIFF AUTOMATED, IRON SAT PANEL (IRON,IBC,%SAT), [...] Care Team (Late st Contact Info) Description 02/16/2025 4:00 PM SMALL ARMS REPAIRER Appointment [facility] Ultrasound [address] [place] [id number] Kelin Garza, DO [address] [facility] [address] [place] [phone] 02/25/2025 7:30 AM SMALL ARMS REPAIRER Appointment [facility] [address] [place] [address] Markus Franco MD [address] [address] 02/25/2025 8:00 AM SMALL ARMS REPAIRER Appointment [facility] [address] [place] [address] Markus Franco MD [address] [address] 02/25/2025 9:00 AM SMALL ARMS REPAIRER Appointment [facility] [address] [place] [address] Markus Franco MD [address] [phone] 02/25/2025 10:00 AM SMALL ARMS REPAIRER Appointment [facility] Nuclear Medicine [address] [place] [address] Markus Franco MD [address] [address] 02/25/2025 11:00 AM SMALL ARMS REPAIRER Appointment [facility] [address] [place] [address] Markus Franco MD [address] [address] 02/25/2025 12:00 PM SMALL ARMS REPAIRER Appointment [facility] Nuclear Medicine [address] [place] [address] Markus Franco MD 3 [facility] [address] [place] [address] 03/04/2025 8:20 AM SMALL ARMS REPAIRER Office Visit [facility] [address] [facility], [address] [place] [address] Bonita Murray MD [address] [address] documented as of this encounter Visit Diagnoses Not on filedocumented in this encounter Additional Health Concerns Infection Onset Date Last Indicated Resolved Time COVID-19 Rule Out 12/21/2024 12/21/2024 12/21/2024 4:33 PM CDT Assessment Noted Time PHQ-9 Depression Total Score: 15 025 1:22 PM CDT documented as of this encounter Care Teams Broadcasting Equipment Mechanic Relationship Specialty Start Date End Date Tara Maki FNP [address] [place] [address] [place] [address] PCP - General Nurse Practitioner Family 11/19/24 documented as of this encounter
[2025-02-15 19:06] VITALS: BP 155/111; PULSE 93; RESP 16; TEMP 36.4; O2SAT 98
--- OUTSIDE RECORDS SUMMARY | 2025-02-15 19:06 | XMS_ITS | Clinical Summary ---
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 Organization Address City/[facility]/ZIP Co de Phone Number [facility] [address] [place] [address], [place] [phone] * CORONAVIRUS (COVID-19) MOLECULAR (12/21/2024 3:45 PM CDT) [facility] CORONAVIRUS SARS COV 2 RNA NEGATIVE NEGATIVE 12/21/2024 4:33 PM CDT [facility] Comment: NEGATIVE RESULTS DO NOT RULE [...] SPECIMEN TYPE NASAL 12/21/2024 4:13 PM CDT [facility] NASOPHARYNGEAL SWAB / Unknown 12/21/2024 3:45 PM CDT Lilian Dial MD MICROBIOLOGY - GENERAL ORD ERABLES Final Result [facility] [address] [place] [address], [place] [phone] * (ABNORMAL) DRUG SCREEN RAPID (12/21/2024 3:45 PM CDT) [facility] AMPHETAMINE (U) NONE DETECTED NONE DETECTED 12/21/2024 4:35 PM CDT [facility] BARBITURATES SCREEN (U) NONE DETECTED NONE DETECTED 12/21/2024 4:35 PM CDT [facility] BENZODIAZEPINES SCREEN (U) DETECTED(A) NONE DETECTED 12/21/2024 4:35 PM CDT [facility] BUPRENORPHINE SCREEN (U) NONE DETECTED NONE DETECTED 12/21/2024 4:35 PM CDT [facility] COCAINE METABOLITES (U) NONE DETECTED NONE DETECTED 12/21/2024 4:35 PM CDT [facility] METHAMPHETAMINE (U) NONE DETECTED NONE DETECTED 12/21/2024 4:35 PM CDT [facility] METHADONE (U) NONE DETECTED NONE DETECTED 12/21/2024 4:35 PM CDT [facility] OPIATE SCREEN (U) NONE DETECTED NONE DETECTED 12/21/2024 4:35 PM CDT [facility] OXYCODONE SCREEN (U) NONE DETECTED NONE DETECTED 12/21/2024 4:35 PM CDT [facility] PHENCYCLIDINE PCP (U) NONE DETECTED NONE DETECTED 12/21/2024 4:35 PM CDT [facility] CANNABINOIDS SCREEN (U) NONE DETECTED NONE DETECTED 12/21/2024 4:35 PM CDT [facility] TRICYCLIC ANTIDEPRESSANT SCREEN (U) NONE DETECTED NONE DETECTED 12/21/2024 4:35 PM CDT [facility] Comment: NOTE: RESULTS OF THIS DRUG [...] SPECIMEN / Unknown 12/21/2024 3:45 PM CDT us Lilian Dial MD URINE ORDERABLES Final Res ult [facility] [address] [place] [address], [place] [phone] * TEST URINE (12/21/2024 3:45 PM CDT) URINE HCG TEST NEGATIVE NEGATIVE 12/21/2024 4:25 PM CDT [facility] Comment: VERY DILUTE URINE SPECIMENS MAY NOT CONTAIN LATIN TEACHER LEVELS OF HCG. IF IS STILL SUSPECTED, A SERUM HCG TEST IS RECOMMENDED. URINE SPECIMEN FROM URETHRA / Unknown 12/21/2024 3:45 PM CDT us Lilian Dial MD URINE ORDERABLES Final Res ult [facility] [address] [place] [address], [place] [phone] * (ABNORMAL) URINALYSIS, AUTO, COMPLETE (12/21/2024 3:45 PM CDT) COLOR (U) DARK YELLOW 12/21/2024 4:27 PM CDT [facility] TRANSPARENCY CLEAR 12/21/2024 4:27 PM CDT [facility] SPECIFIC GRAVITY (U) 1.020 1.000 - 1.030 12/21/2024 4:27 PM CDT [facility] U PH 6.0 5.0 - 9.0 12/21/2024 4:27 PM CDT [facility] LEUKOCYTES (U) NEGATIVE NEGATIVE 12/21/2024 4:27 PM CDT [facility] NITRITES NEGATIVE NEGATIVE 12/21/2024 4:27 PM CDT [facility] PROTEIN RANDOM (U) NEGATIVE NEGATIVE 12/21/2024 4:27 PM CDT [facility] GLUCOSE (U) NEGATIVE NEGATIVE 12/21/2024 4:27 PM CDT [facility] KETONES MG/DL (U) NEGATIVE NEGATIVE 12/21/2024 4:27 PM CDT [facility] BILIRUBIN (U) NEGATIVE NEGATIVE 12/21/2024 4:27 PM CDT [facility] BLOOD (U) 3+(A) NEGATIVE 12/21/2024 4:27 PM CDT [facility] WBC/HPF 0-5 0 - 5 /HPF 12/21/2024 4:27 PM CDT [facility] RBC/HPF 50-100 0 - 5 /HPF 12/21/2024 4:27 PM CDT [facility] EPI/HPF FEW /HPF 12/21/2024 4:27 PM CDT [facility] URINE SPECIMEN OBTAINED BY CLEAN CATCH PROCEDURE / Unknown 12/21/2024 3:45 PM CDT us Lilian Dial MD URINE ORDERABLES Final Res ult [facility] [address] [place] [address], [place] [phone] * SYPHILIS AB (DIAGNOSTIC) WITH CASCADING REFLEX (12/16/2024 10:19 AM CDT) SYPHILIS IGG IGM AB NON-REACTI VE NON-REACTI VE 12/16/2024 3:08 PM CDT [facility] Comment: No serologic evidence of syphilis. No follow-up necessary unless clinically indicated. 12/16/2024 10:1 9 AM CDT us Kelin Garza DO LABORATORY Final Resu lt [facility] [address] [place] [address], [place] [phone] * HIV 1 ANTIGEN(S), WITH HIV-1 AND HIV-2 ANTIBODIES (12/16/2024 10:19 AM CDT) Only the most recent of2 resultswithin the time period is included. HIV 1/2 AB+ HIV1 P24 AG NON-REACTI VE NON-REACTI VE 12/16/2024 3:41 PM CDT [facility] 12/16/2024 10:1 9 AM CDT Kelin Guanako Garza DO LABORATORY Final Resu lt [facility] [address] [place] [address], [place] [phone] * IRON SAT PANEL (IRON,IBC,%SAT) (12/16/2024 10:19 AM CDT) IRON 90 50.0 - 170.0 MCG/DL 12/16/2024 2:48 PM CDT [facility] IRON BINDING CAPACITY 402 250 - 450 MCG/DL 12/16/2024 2:48 PM CDT [facility] IRON SATURATION 22 20 - 55 % 2:48 PM CDT [facility] 12/16/2024 10:1 9 AM CDT us Tara Maki [employer]UE WHEEL OPERATOR LABORATORY Final Result Performing Organization Address City/[facility]/ZIP Co de Phone Number [facility] [address] [place] [address], [place] [phone] * VITAMIN B-12 (12/16/2024 10:19 AM CDT) VITAMIN B12 S/P/B 511 254 - 1,320 PG/ML 12/16/2024 3:13 PM CDT [facility] 12/16/2024 10:1 9 AM CDT us Tara RODRIGUEZP LABORATORY Final Result [facility] [address] [place] [address], [place] [phone] * HEPATITIS C ANTIBODY (12/16/2024 10:19 AM CDT) HEPATITIS C AB NON-REACTI VE NON-REACTI VE 12/16/2024 3:40 PM CDT [facility] 12/16/2024 10:1 9 AM CDT Kelin Villatorouster DO LABORATORY Final Resu lt [facility] [address] [place] [address], [place] [phone] * HEPATITIS B SURFACE AG, EIA (12/16/2024 10:19 AM CDT) Pathologist [facility] HEPATITIS B SURFACE AG NON-REACTI VE NON-REACTI VE 12/16/2024 3:07 PM CDT [facility] 12/16/2024 10:1 9 AM CDT Kelin Mujica [employer] LABORATORY Final Resu lt [facility] [address] [place] [address], [place] [phone] * FERRITIN (12/16/2024 10:19 AM CDT) FERRITIN 20.7 8.0 - 388.0 NG/ML 12/16/2024 2:48 PM CDT [facility] 12/16/2024 10:1 9 AM CDT us Tara Maki [facility]OR[facility] Final Result [facility] [address] [place] [address], * HEMOGLOBIN, GLYCOSYLATED (11/26/2024 9:25 AM CDT) HGB A1C 4.9 <5.7 % 11/26/2024 3:53 PM CDT [facility] Comment: ADA GUIDELINES 2010 5.7 TO 6.4% INCREASED RISK OF DIABETES > OR = 6.5% CONSISTENT WITH DIABETES ESTIMATED AVG GLUCOSE 94 mg/dL 11/26/2024 3:53 PM CDT [facility] 11/26/2024 9:25 AM CDT Tara Maki [facility] Final Result [facility] [address] [place] [address], * (ABNORMAL) LIPID PANEL (11/26/2024 9:25 AM CDT) CHOLESTEROL 171 <200 MG/DL 11/26/2024 2:42 PM CDT [facility] TRIGLYCERIDES 220(H) <150 MG/DL 11/26/2024 2:42 PM CDT [facility] HDL 35(L) >40.0 MG/DL 11/26/2024 2:42 PM CDT [facility] LDL (CALCULATED) 92 <100 MG/DL 11/26/2024 2:42 PM CDT [facility] Comment:CALCULATED USING THE FRIEDEWALD EQUATION NON HDL CHOLESTEROL 136(H) <130 MG/DL 11/26/2024 2:42 PM CDT [facility] CHOL/HDL RATIO 4.9(H) 0.0 - 4.5 11/26/2024 2:42 PM CDT [facility] VLDL CALCULATION 44 5 - 55 MG/DL 11/26/2024 2:42 PM CDT [facility] LIPID INTERPRETATION 11/26/2024 2:42 PM CDT [facility] Comment: NIH CONCENSUS REPORT RECOMMENDATIONS: ADULT CHILD LOW RISK: CHOLESTEROL <200 <170 TRIGLYCERIDE <150 --- HDL >=60 --- LDL <100 <110 BORDERLINE: CHOLESTEROL 200-239 170-199 TRIGLYCERIDE 150-199 --- HDL 40-59 --- LDL 100-159 110-129 HIGH RISK: CHOLESTEROL >=240 >=200 TRIGLYCERIDE >=200 --- HDL <40 --- LDL >=160 >=130 11/26/2024 9:25 AM CDT Tara Maki [facility] Final Result [facility] [address] [place] [address], [place] [phone] * THYROID STIM HORMONE TSH (11/26/2024 9:25 AM CDT) TSH 0.933 0.358 - 3.74 uIU/ML 11/26/2024 2:42 PM CDT [facility] Comment: HIGH DOSES OF BIOTIN MAY INTERFERE WITH THIS TEST RESULT. CORRELATION TO CLINICAL HISTORY AND PRESENTATION RECOMMENDED. 11/26/2024 9:25 AM CDT us Tara Maki [facility] Final Result [facility] [address] [place] [address], [place] [phone] * INSULIN,TOTAL (11/26/2024 9:25 AM CDT) INSULIN 6.9 <=18.4 uIU/mL 12/04/2024 10:52 AM CDT [employer] Comment: Risk: Optimal < or = 18.4 Moderate NA High >18.4 Adult cardiovascular event risk category cut points (optimal, moderate, high) are based on Insulin Reference interval studies performed at [facility] in 2021. Test Performed by [email or web address], [facility], [address] [place], [place] Pierre Lau M.D., Ph.D., Director of Laboratories , [place] [id number] 11/26/2024 9:25 AM CDT Tara Maki [employer]EL [employer]PER[employer] LABORATORY Final Result [employer] [facility] [place] [id number] [place], [place] , from Last 3 Months Insurance [facility] MEDICARE MEDICAID Care Teams Clinic Office Manager Relationship Specialty Start Date End Date Tara Maki, LAKISHA [address] [place] [address] [place] [address] PCP - General Nurse Practitioner Family 11/19/24
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
--- OUTSIDE RECORDS SUMMARY | 2025-02-15 19:06 | XMS_ITS | Data Portability ---
Author Organization [facility], [id number] Address [address] [place] [address] Assessment No assessment recorded. Plan of Treatment Reminders Order Date Submit Date Provider Last Modified By Organization Details Last Modified Time Details Appointments ANNUAL- EST 15 2025 01:00P M NASIR MCKEON DO Not available Not available Not available Lab HBsAg (hepati tis B surface Ag), serum 2024 025 [facility] Registration Department, [address] [place], [address], 12/16/2024 16:26:45 hepatit is C Ab, serum 2024 025 [facility] Registration Department, [address] [place], [address], 12/16/2024 17:06:46 HIV 1+2 AB + HIV 1 p24 Ag, qualita tive immunoa ssay, serum 2024 025 [facility] Registration Department, [address] [place], [address], 12/16/2024 17:02:50 syphili s Ab, igg 2024 025 [facility] Registration Department, [address] [place], [address], 12/16/2024 16:29:06 CT + NG + TV, DNA, urine/s wab 2024 025 [facility] ([facility]), [address] , [place] [address], [place], [address], 12/04/2024 14:58:45 Referral None recorde d. Procedures None recorde d. Surgeries None recorde d. Imaging US, pelvis, transab dominal + transva ginal 2024 025 [facility] Registration Department, [address] [place] [address] [address], [place], [address], 02/12/2025 16:02:55 Medication Orders None recorde d. Patient TargetsNo targets recorded. Patient Instructions Encounter Date Encounter Id Patient Instructions Last Modified By Organization Details Last Modified Time 12/03/2024 [id number] A healthy lifest yle: care instructions Not [...] Testing for Inheritable Disorders (Carrier Screening): [employer] [place] [employer] recommends that [...] breast discharge. [id number] Not available 12/03/2024 16:41:16 02/04/2025 [id number] Discussed discontinuing OCP to reduce risk associated with estrogen in setting if migraines. Obtain US to assess for AUB. Recommend Mirena IUD. Pre-medicate w/ Valium and Roxicodone. Not available 02/07/2025 20:31:28 Reason for Referral None Reported. Results Created Date Observation Date Name Description Value Unit Range Abnormal Flag Note LastModifiedBy Organization Detail LastModifiedTime 12/04/19 25 12/04/2024 CHLAM YDIA, GONOR RHOEA [...] [facility] d/b/a Cheryl weber, [address], [place] [address] , Jolene Crespo ra, DO, Labor atory [facility], CLIA# [id number] Not Available [facility] ([facility]) [address], [place], [address], 12/04/2024 14:58:45 12/04/19 25 12/04/2024 CHLAM YDIA, [...] [facility] d/b/a Cheryl weber, [address] [facility] [address] [address] , Jolene Crespo ra, DO, Labor atory [facility]# [id number] Not Available [facility] ([facility]) [address], [place], [address], 12/04/2024 14:58:45 12/04/19 25 12/04/2024 CHLAM YDIA, [...] [facility] d/b/a Cheryl weber, [address], [place] [address] , Jolene Crespo ra, DO, Labor atory [facility], CLIA# [id number] Not Available [facility] ([facility]) [address], [place], [address], 12/04/2024 14:58:45 Result Notes None recorded. Problems Name Problem SNOMED Code Status Onset Date Resolution Date Notes Provider Name and Address Organization Details Recorded Time Hypothyroi dism 38957445 Active Connie Weston null, [place] [facility] 5 16:06:29 Fibromyalg ia 209958832 Active Connie [place] [facility] 5 16:06:50 Anxiety 31127673 Active Connie West[place] [facility] 5 16:07:00 Irritable bowel syndrome 72443047 Active 2024 NASIR MCKEON [address], [place], [address], [facility] 5 16:16:36 Migraine 31766128 Active 2024 NASIR MCKEON [address], [place], [address], [facility] - [facility] 5 16:17:11 Premenstru al tension syndrome 51075286 Active 2024 NASIR MCKEON [address], [place], [address], [facility] 5 22:54:49 Abnormal uterine bleeding 425803063395 00 Active 2024 NASIR MCKEON DO [address], [place], [address], [place] [facility] 13:06:24 Problem Notes None recorded. Procedures Surgical History Date Name Laterality Status Provider Name and Address Organization Details Recorded Time 025 [facility] Annual Well-Woman Visit age 18-39 [place] [address] [place] [address] completed NASIR MCKEON DO [address], [place], [address], [place] [facility] 12/03/2024 16:11:37 023 Date of Last Pap Smear completed Connie Weston [place] [facility] 12/03/2024 16:07:22 016 Date of Last Colonoscopy completed Connie [place]on [place] [facility] 12/03/2024 16:07:54 Tonsillectomy completed [place] [facility] 12/03/2024 15:59:58 Appendectomy completed Connie Weston [place] [facility] 12/03/2024 15:59:58 Colonoscopy completed Connie [place]on [place] [facility] 12/03/2024 15:59:58 cholecystectomy completed Connie Weston [place] [facility] 12/03/2024 16:08:42 aspiration of spinal cyst completed Connie Weston [place] [facility] 12/03/2024 16:09:03 Imaging Results None recorded. Procedure Notes None recorded. Medical Equipment None Reported. Allergies Allergen ID Allergen Name Allergen Category Reaction Reaction Severity Criticality Documentation Date Start Date Code Code System Note Provider Name and Address Organization Details Recorded Time 298470 prednison e medicatio n Not available Not available Not available 12/03/2024 8640 RxNorm Connie Weston null, [place] [facility] 15:59:58 834845 propranol ol medicatio n Not available Not available Not available 12/03/2024 8787 RxNorm Connie Weston null, [place] [facility] 16:04:06 924207 Seroquel medicatio n Not available Not available Not available 12/03/2024 26407 RxNorm Connie Weston [facility] 16:04:23 Medications Name Sig Start Date Stop [...] Updated DateTime 12/03/2024 152.4 cm 45.1 kg/m2 151990.84 g 126/80 mm[Hg] Connie Weston [facility] 12/03/2024 16:03:28 Date Recorded Body height Body mass index (BMI) Body weight Systolic And Diastolic Provider Name and Address Organization Details Last Updated DateTime 02/04/2025 152.4 cm 45.9 kg/m2 737811.21 g 122/78 mm[Hg] Jami Lina [facility] 02/04/2025 12:39:20 Social History Question Answer Notes LastModified by Organizat ion Details LastModified Time Tobacco Smoking Status Never Smoker Connie Weston [facility] 12/03/2024 15:59:58 Do You Have An Advance Directive? No Information not available 12/03/2024 If You Are , What Was Your Level Of Alcohol Consumption Prior To ? None [email or web address] Information not available 12/03/2024 What Is Your Level Of Caffeine Consumption? Occasional [email or web address] Information not available 12/03/2024 What Type Of Diet Are You Following? REGULAR [email or web address] Information not available 12/03/2024 What Is Your Relationship Status? Single [email or web address] Information not available 12/03/2024 Sex: Female Functional Status Question Answer Note LastModified by Organizat ion Details LastModified Time Do you use any illicit or recreational drugs? No [email or web address] Information not available 12/03/2024 What is your level of alcohol consumption? None [email or web address] Information not available 12/03/2024 Are you currently employed? No Information not available 12/03/2024 Mental Status None recorded. Family History Relationship Description Onset Age of this Age Resolved Age Notes LastModified by Organization Details LastModified Time Brother Depressive disorder [email or web address] Not available 2024 15:59:58 Father Hypertensive disorder [email or web address] Not available 2024 15:59:58 Paternal Grandmother Malignant neoplasm of breast Not available 2024 15:59:58 Mother Depressive disorder [email or web address] Not available 2024 15:59:58 Mother Osteoporosis [email or web address] Not avai devorah 12/03/2024 15:59:58 Mother Mental disorder [email or web address] Not available 2024 15:59:58 Unspecified Relation Anxiety disorder [email or web address] Not available 2024 15:59:58 Unspecified Relation Mental disorder [email or web address] Not available 2024 15:59:58 Maternal Grandmother Malignant neoplasm of breast [email or web address] Not available 2024 15:59:58 Maternal Grandfather Depressive disorder [email or web address] Not available 2024 15:59:58 Paternal Grandfather Neoplasm of prostate [email or web address] Not available 2024 15:59:58 Paternal Grandfather Substance abuse [email or web address] Not available 2024 15:59:58 Medical History Condition Response Pulmonary- Sleep Apnea Y GI- Hemorrhoids Y Psych- Depression Y GI- Irritable Bowel [...] Recorded Time Tdap 12/21/2024 completed Not Available [facility] 02/04/2025 12:24:57 Influenza, MDCK, trivalent, PF 01/21/2025 completed Not Available [facility] 2024 12:24:57 Past Encounters Encounter ID Performer Location Encounter Start Date Encounter Closed Date Diagnosis/Indication Diagnosis SNOMED-CT Code Diagnosis ICD10 Code Diagnosis IMO Codes Diagnosis Note [id number] NASIR MCKEON DO [id number] [facility] [address] [place] [address] 12/03/2024 15:16:41 12/03/2024 16:43:03 Gynecologic examination 85172423 Z01.419 - Discussed the impact of stress on hormonal changes and advised monitoring menstrual cycle regularity .- Start Loestrin Depression screening 171 931736 Z13.31 - Screening for depression as part of health [facility]. [facility] screening 127346114 Z13.39 Infection screening 2437 40129 Z11.3 Premenstru al tension syndrome 82296368 N94.3 51050 - Discussed control options to manage symptoms, recommende d follow-up in two months to assess effectiven ess. History of breast problem 383849153 Z87.560 2187309 - Report if recurrence History of migraine 1614 04366 Z86.69 6422088 - Reports history of menstrual migraine- Considered control with estrogen and progestero ne, advised keeping a headache diary. [id number] [id number] [address] [place] [address] 02/04/2025 12:14:23 02/04/2025 13:08:08 Abnormal uterine bleeding 9238137635 9100 N93.9 377648 Health Concerns Section Related Observation LastModified by Organization Detai ls LastModified Time None Recorded Concern Status LastModified by Organization Details LastModified Time None Recorded Advance Directives Directive N: Payers Insurance Date Sequence Insurance Name Policy Number Policy Pérez Covered Member ID Pérez Member ID Guarantor Name 02/10/2025 1 [facility] (MEDICARE REPLACEMENT/A DVANTAGE - HMO) [id number] Nehal Lerma [id number] Nehal Lerma Notes Date Note Type Note Provider Name and Address Organization Details Recorded Time 5 text/html [facility] Annual Well-Women Visit Age 30-39Reported by [...] normal,last hpv negative, andreviewed and documented in gyn physician history. For mammography, patient reportsn/a. For bone density study, patient reportsn/a. For colorectal screening, patient reportsn/a. For diabetes screening, patient labozrqgn-ny-erfl. For lipid screening, patient yyoieeawc-ee-fzcl. For thyroid screening, patient mxfewnoaq-do-tbvx.Heal th Risk AnalysisFor medical risk factors, patient [...] her health maintenance. NASIR MCKEON DO [address], [place], [address], [facility] 12/08/2024 22:58:11 5 text/html Patient presents for follow up of [...] 03/04 for migraines. NASIR MCKEON DO [address], [place], [address], [facility] 02/07/2025 20:32:18 OBGyn Episode No OBEpisode recorded.
--- OUTSIDE RECORDS SUMMARY | 2025-02-15 19:06 | XMS_ITS | Encounter Summary ---
Author Organization [facility] Address [facility]ly [facility] [place] [address] Care Team Providers Care Java Designer Name Role Phone None, Provider Primary Care Provider Neha Jones APRN Primary Care Provider [phone] Tara Maki Primary Care Provider [phone] Encounter Details Date Type Department Care Team (Late st Contact Info) Description 10/15/2024 MyChart Message Enc [facility] [address] [place] [address] Neha Araiza APRN [address] [place] [id number] Medication Social History Tobacco Use Types Packs/Day [...] st Contact Info) Description 02/16/2025 4:00 PM MANAGER [employer] Appointment [facility] [address] [facility] [address] [place], [place] [phone] Kelin Garza, [address] [facility] [address] [place] [address] 02/25/2025 7:30 AM MANAGER [employer] Appointment [facility] Nuclear Medicine [address] [place] [address] Markus Franco MD [address] [facility] [address] [place] [address] 02/25/2025 8:00 AM MANAGER [employer] Appointment [facility] Nuclear Medicine [address] [place] [address] Markus Franco MD [address] [facility] [address] [place] [address] 02/25/2025 9:00 AM MANAGER [employer] Appointment [facility] Nuclear Medicine [address] [place] [address] Markus Franco MD [address] [facility] [address] [place] [address] 02/25/2025 10:00 AM MANAGER [employer] Appointment [facility] Nuclear Medicine [address] [place] [address] Markus Franco MD 3 [facility] [address] [place] [address] 02/25/2025 11:00 AM MANAGER [employer] Appointment [facility] Nuclear Medicine [address] [place] [address] Markus Franco MD 3 [facility] [address] [place] [address] 02/25/2025 12:00 PM MANAGER [employer] Appointment [facility] Nuclear Medicine [address] [place] [address] Markus Franco MD [address] [place] [address] [address] [place] [address] 03/04/2025 8:20 AM MANAGER [employer] Office Visit [facility] - [address], [address] [place] [address] Bonita Murray MD [address] [address] [place] [address] documented as of this encounter Visit Diagnoses Not on filedocumented in this encounter Additional Health Concerns Infection Onset Date Last Indicated Resolved Time COVID-19 Rule Out 12/21/2024 12/21/2024 12/21/2024 4:33 PM CDT Assessment Noted Time PHQ-9 Depression Total Score: 15 07/2 025 3:00 PM CDT documented as of this encounter Care Teams Java Designer Relationship Specialty Start Date End Date None, Provider, PCP - General UNKNOWN PHYSICIAN SPECIALTY 09/11/24 11/01/24 Neha Araiza APRN [address] [place] [address] PCP - General NURSE PRACTITIONER 11/02/24 11/18/24 Tara Maki FNP [address] [place] [address] [place] [address] PCP - General Nurse Practitioner Family 11/19/24 documented as of this encounter
[2025-02-15 19:45] LABS: BEDSIDEPREGUCG Negative (Negative)
[2025-02-15 19:48] LABS: Hematocrit 45.0 % (37.0-47.0); Hemoglobin 14.9 g/dL (12.0-15.0); Immature Granulocyte Percent A 0.6 % (0-0.5); Lymphocytes Absolute Auto 2.93 K/mm3 (0.9-3.2); Mean Corpuscular HGB Conc 33.1 g/dl (32-36); Mean Corpuscular Hemoglobin 28.2 pg (26-34); Mean Corpuscular Volume 85.2 fl (80-100); Nucleated Red Blood Cells Absolute Auto 0.000 K/mm3 (0.0-0.012); Nucleated Red Blood Cells Perc 0.0 % (0.0-0.2); Platelet Count Result 369 k/mm3 (150-375); Red Blood Count 5.28 M/mm3 (4.2-5.4); White Blood Count 11.6 K/mm3 (4.5-10.0)
[2025-02-15 19:54] LABS: Add Urine Microscopic? YES; Appearance Urine Clear (Clear); Glucose Urine UA Negative (Negative); Leukocyte Esterase Ur Trace LEU/UL (Negative); Nitrate Urine Negative (Negative); Non Pathogenic Casts 0-2; Specific Grav Ur 1.010 (1.001-1.035)
[2025-02-15 19:57] LABS: Alanine Aminotransferase 29 U/L (6-35); Albumin Level 4.5 g/dL (3.5-5.1); Alkaline Phosphatase 65 U/L (38-126); Anion Gap 10 mmol/L (4-12); Aspartate Amino Transferase 22 U/L (14-36); Bilirubin,Total 0.4 mg/dL (0.2-1.3); Blood Urea Nitrogen 17 mg/dL (7-17); Calcium 9.5 mg/dL (8.4-10.2); Carbon Dioxide 24 mmol/L (22-30); Chloride 102 mmol/L (98-107); Estimated CRCL calculation 105 ml/min; Estimated Glomerular Filt Rate > 60; Glucose 114 mg/dL (65-110); Lipase 62 U/L (23-300); Potassium 4.1 mmol/L (3.4-5.0); Sodium 136 mmol/L (137-145); Total Protein 7.8 g/dL (6.3-8.2)
[2025-02-15 21:04] VITALS: BP 150/98; PULSE 81; RESP 16; O2SAT 97
--- OUTSIDE RECORDS SUMMARY | 2025-02-15 21:04 | XMS_ITS | Clinical Summary ---
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 Primary Care Provider [phone] Allergies Active Allergy Reactions Criticality Noted Date [...] Type Department Care Team Description 02/12/[address] [place] [address] Tara Maki FNP Prior Authorization (PA request Ubrelvy 50 mg #10 tabs.) 02/11/2025 Patient Outreach [address] [place] [address] Tara Maki FNP 02/10/[address] [place] [address] Tara Maki FNP Prior Authorization (PA request Sumatriptan.) 02/10/2025 MyChart Message Enc [facility]ly [facility] [address] [facility] [place] [address] Tara Maki FNP Zofran 02/10/2025 Results Follow-Up [facility] [address] [facility] [place] [address] Tara Maki FNP C-REACTIVE PROTEIN, RHEUMATOID FACTOR, QUANT, SED RATE, ERYTHROCYTE (ESR) 02/09/2025 3:07 PM PIPE PULLER - 02/09/2025 11:59 PM PIPE PULLER Hospital Encounter [facility] [address] [facility] [place] [address] Tara Maki FNP Discharge Disposition: Home or Self Care (Routine Discharge) 02/09/2025 2:40 PM PIPE PULLER Office Visit [facility] Medical [facility] [place] [address] [facility] [place] [phone] Tara Maki FNP Kim, Peter S, MD New Patient 02/09/2025 Orders Only [facility] [address] [facility] [place] [address] Tara Maki FNP 02/09/2025 Travel 02/04/2025 9:20 AM PIPE PULLER Office Visit [facility] [address] [facility] [place] [address] Tara Maki FNP Follow Up (Patient is here to follow up on migraines, /Patient feels headaches have been worse, scheduled to get a nerve block for the headache next week. //) 02/04/2025 Telephone [facility] [address] [facility] [place] [address] Tara Maki FNP Prior Authorization (PA request Ubrelvy 50 mg Tablet.) 02/04/2025 Travel 01/23/2025 Scan [facility] Scanned, [facility] CT (SCAN) 01/15/2025 1:39 PM CDT - 01/15/2025 3:35 PM CDT Emergency [facility] Emergency Services [address] [address] Zachary Stokes, Musculoskeletal Pain Discharge Disposition: Home or Self Care (Routine Discharge) 01/15/2025 12:40 PM CDT Office Visit [facility] [address] [facility] [place] [address] 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 She states her pain is at a 7./-nkw) 01/15/2025 Travel 01/15/[address] [place] [address] Tara Maki FNP Question 12/21/2024 3:12 PM CDT - 12/22/2024 1:17 AM CDT Emergency [facility] Emergency Room [id number] [place] [address] Lilian Dial MD Bason-Mitchel l, Shmuel Wagoner MD Suicidal Ideation Discharge Disposition: Transfer to Acute [facility] 12/21/2024 Travel 12/17/2024 MyChart Message Enc [address] [place] [address] Tara Maki FNP Medication/Dental 12/16/2024 10:03 AM CDT - 12/16/2024 11:59 PM CDT Hospital Encounter [facility] [address] [address] Tara Maki FNP Discharge Disposition: Home or Self Care (Routine Discharge) 12/16/2024 10:02 AM CDT Hospital Encounter [facility] [address] [place] [address] Kelin Garza DO Discharge Disposition: Home or Self Care (Routine Discharge) 12/16/2024 9:20 AM CDT Office Visit [facility] [address] [facility] [place] [address] Tara Maki FNP ER F/U (Was seen in G for back pain/headache on 12/11/24) 12/16/2024 Results Follow-Up [facility] [address] [place] [address] Tara Maki FNP CBC W/DIFF AUTOMATED, IRON SAT PANEL (IRON,IBC,%SAT), VITAMIN B-12, FERRITIN 12/16/2024 Orders Only [facility] [address] [place] [address] Kelin Garza, 12/16/2024 Travel 12/10/2024 5:50 PM CDT - 12/10/2024 6:53 PM CDT Emergency [facility] Emergency Services [address] [place] [address] Zachary Maldonado MD Back Pain Discharge Disposition: Home or Self Care (Routine Discharge) 12/10/2024 Travel 12/03/2024 1:20 PM CDT Office Visit [facility] [address] [facility] [place] [address] Tara Maki FNP Follow Up (Nehal is here today for a follow up. She states she needs some referrals today and wants to discuss some medications./-nkw) 12/03/2024 Travel 12/01/2024 Telephone [facility] [address] [facility] [place] [address] Tara Maki FNP Fax 11/27/2024 Results Follow-Up [facility] [address] [facility] [place] [address] Tara Maki FNP COMPREHENSIVE METABOLIC PANEL, LIPID PANEL, HEMOGLOBIN, GLYCOSYLATED, Additional followed-up results: 3 11/26/2024 9:16 AM CDT - 11/26/2024 11:59 PM CDT Hospital Encounter [facility] [address] [place] [address] Tara Maki FNP Discharge Disposition: Home or Self Care (Routine Discharge) 11/26/2024 MyChart Message Enc [facility] [address] [place] [address] Tara Maki FNP Qulipta 11/26/2024 Travel 11/25/[address] [place] [address] Tara Maki FNP Prior Authorization (KRISTAL Zepbound 2.5 mg) 11/24/[address] [place] [address] Tara Maki FNP Prior Authorization (KRISTAL request Qulipta 30 mg tab.) 11/19/2024 1:20 PM CDT Office Visit [address] [place] [address] Tara Maki FNP Meet and Greet Provider (Pt is here to transfer care from [facility] to Ernie Maki) 11/19/2024 Travel 11/18/[address] [place] [address] Neha Araiza, GEAR CUTTING MACHINE OPERATOR Fax 11/17/[address] [place] [address] Neha Araiza, GEAR CUTTING MACHINE OPERATOR Information 11/16/[address] [place] [address] Neha Araiza, GEAR CUTTING MACHINE OPERATOR Medication Problem 11/16/2024 Orders Only [address] [address] Neha Araiza, GEAR CUTTING MACHINE OPERATOR from Last 3 Months Immunizations Immunization Administration [...] Comments Blood Pressure 112/74 02/09/2025 2:35 PM PIPE PULLER Pulse 87 02/09/2025 2:35 PM PIPE PULLER Temperature 36.6 C (97.9 F) 02/04/2025 9:15 AM PIPE PULLER Respiratory Rate 17 02/09/2025 2:35 PM PIPE PULLER Oxygen Saturation 97% 02/09/2025 2:35 PM PIPE PULLER Inhaled Oxygen Concentration - - Weight 107.6 kg (237 lb 3.2 oz) 02/09/2025 2:35 PM PIPE PULLER Height 154.9 cm (5' 1) 02/09/2025 2:35 PM PIPE PULLER Body Mass Index 44.82 02/09/2025 2:35 PM PIPE PULLER Plan of Treatment Upcoming Encounters Date Type Department Care Team (Late st Contact Info) Description 02/16/2025 4:00 PM PIPE PULLER Appointment [facility] Ultrasound [address] [place] [id number] Kelin Garza, [address] [facility] [address] [place] [address] 02/25/2025 7:30 AM PIPE PULLER Appointment [facility] Nuclear Medicine [address] [place], [place] [phone] Markus Franco MD [address] [facility] [address] [place], [place] [address] 02/25/2025 8:00 AM PIPE PULLER Appointment [facility] [address] [place] [address] Markus Franco MD [address] [address] [place] [address] 02/25/2025 9:00 AM PIPE PULLER Appointment [facility] [address] [place] [address] Markus Franco MD [address] [address] [place] [address] 02/25/2025 10:00 AM PIPE PULLER Appointment [facility] Nuclear Medicine [address] [place] [address] Markus Franco MD [address] [address] 02/25/2025 11:00 AM PIPE PULLER Appointment [facility] [address] [place] [address] Markus Franco MD [address] [address] 02/25/2025 12:00 PM PIPE PULLER Appointment [facility] [address] [place] [address] Markus Franco MD [address] [address] 03/04/2025 8:20 AM PIPE PULLER Office Visit [facility] [address] [facility], [address] [place] [address] Bonita Murray MD 3 [facility] [address] [place] [address] Health Maintenance Due Date Last Done Comments [...] Postponed from 11/23/2024 (Patient Refused) PHQ-2 (Physician [place]) Completed 11/19/2024 Hepatitis C Completed 12/16/2024 Influenza [...] RATE, ERYTHROCYTE (ESR) Routine 02/09/2025 3:16 PM PIPE PULLER Amplified musculoskeletal pain, diffuse Fibromyalgia affecting multiple sites RHEUMATOID FACTOR, QUANT Routine 02/09/2025 3:16 PM PIPE PULLER Amplified musculoskeletal pain, diffuse Fibromyalgia affecting multiple sites C-REACTIVE PROTEIN Routine 02/09/2025 3: 16 PM PIPE PULLER Amplified musculoskeletal pain, diffuse Fibromyalgia affecting multiple sites ANTINUCLEAR ANTIBODY WI RFX Routine 02/09/2025 3:16 PM PIPE PULLER Amplified musculoskeletal pain, diffuse Fibromyalgia affecting multiple [...] SED RATE, ERYTHROCYTE (ESR) (02/09/2025 3:16 PM PIPE PULLER) ESR 7 <20 MM/HR 02/09/2025 7:49 PM PIPE PULLER [facility] Comment:Testing performed on [employer] iSED. BLOOD VENOUS BLOOD SPECIMEN / Unknown 02/09/2025 3:16 PM PIPE PULLER us aTra [facility] Final Result Performing Organization Address City/[facility]/ZIP Co de Phone Number [facility] [address] [place] [address], [place] [phone] * RHEUMATOID FACTOR, QUANT (02/09/2025 3:16 PM PIPE PULLER) Pathologist [facility] RHEUMATOID FACTOR <10 <15 IU/ML 02/09/2025 7:38 PM PIPE PULLER [facility] BLOOD VENOUS BLOOD SPECIMEN / Unknown 02/09/2025 3:16 PM PIPE PULLER us Tara Maki [facility] Final Result [facility] [address] [place] [address], [place] [phone] * (ABNORMAL) C-REACTIVE PROTEIN (02/09/2025 3:16 PM PIPE PULLER) Pathologist [facility] C-REACTIVE PROTEIN 0.41(H) <0.29 mg/dL 02/09/2025 7:38 PM PIPE PULLER [facility] BLOOD VENOUS BLOOD SPECIMEN / Unknown 02/09/2025 3:16 PM PIPE PULLER us Tara Milan Shanthi [facility] Final Result Performing Organization Address [facility]/RUST Co de Phone Number [facility] [address] [place] [address], [place] [phone] * ANTINUCLEAR ANTIBODY WI RFX (YADIRA) (02/09/2025 3:16 PM PIPE PULLER) YADIRA <0.09 02/10/2025 11:45 AM PIPE PULLER [facility] Comment: NEGATIVE: <0.7 RATIO YADIRA PROFILE AND TITER NOT PERFORMED THE YADIRA SCREEN TESTS FOR THE FOLLOWING ANTIBODIES BY EIA: SSA1 (RO), SSB1 (LA), ROONEY, SCL70, JO1, CENTROMERE, HATCH BOSS HISTONE MUST BE ORDERED SEPARATELY DNA (DS) ANTIBODY 3.9 IU/ML 025 11:38 AM PIPE PULLER [facility] Comment: NEGATIVE: <10 IU/mL EQUIVOCAL: 10 to 15 IU/mL POSITIVE: >15 IU/mL THIS QUANTITATIVE ASSAY IS CALIBRATED TO THE [employer]'S WO/80 STANDARD. THE LEVEL OF dsDNA AUTOANTIBODY GERERALLY CORRELATES WITH THE LEVEL OF DISEASE ACTIVITY IN SYSTEMIC LUPUS ERYTHMATOSUS BLOOD VENOUS BLOOD SPECIMEN / Unknown 02/09/2025 3:16 PM PIPE PULLER Tara M Shanthi [facility] Final Result Performing Organization Address [facility]/RUST Co de Phone Number [facility] [address] [place] [address], [place] [phone] * CT GENERIC (01/23/2025) Anatomical Region Laterality Modality Other 01/23/2025 us [facility] Scanned SCANNING Final Resu lt * COMPREHENSIVE METABOLIC PANEL (01/15/2025 1:58 PM CDT) Only the most recent of3 resultswithin the time period is included. Pathologist [facility] GLUCOSE 95 70 - 99 MG/DL 01/15/2025 2:50 PM CDT [facility] BUN 13 7 - 18 MG/DL 01/15/2025 2:50 PM CDT [facility] CREATININE S/P/B 0.80 0.50 - 1.20 MG/DL 01/15/2025 2:50 PM CDT [facility] SODIUM S/P/B 139 136 - 145 MMOL/L 01/15/2025 2:50 PM CDT [facility] POTASSIUM S/P/B 3.9 3.5 - 5.1 MMOL/L 01/15/2025 2:50 PM CDT [facility] CHLORIDE S/P/B 104 100 - 108 MMOL/L 01/15/2025 2:50 PM CDT [facility] CO2 25.0 21.0 - 32.0 MMOL/L 01/15/2025 2:50 PM CDT [facility] CALCIUM S/P/B 9.1 8.5 - 10.1 MG/DL 01/15/2025 2:50 PM CDT [facility] BILIRUBIN TOTAL S/P/B 0.4 0.2 - 1.2 MG/DL 01/15/2025 2:50 PM CDT [facility] Comment: THIS ASSAY IS NOT RECOMMENDED FOR PATIENTS UNDERGOING TREATMENT WITH ELTROMBOPAG DUE TO THE POTENTIAL FOR FALSELY ELEVATED RESULTS. TOTAL PROTEIN S/P/B 7.6 6.4 - 8.2 G/DL 01/15/2025 2:50 PM CDT [facility] ALBUMIN S/P/B 3.9 3.4 - 5.0 G/DL 01/15/2025 2:50 PM CDT [facility] AST 15 15 - 37 U/L 01/15/2025 2:50 PM CDT [facility] ALT 21 14 - 55 U/L 01/15/2025 2:50 PM CDT [facility] ALKALINE PHOSPHATASE S/P/B 60 50 - 136 U/L 01/15/2025 2:50 PM CDT [facility] ANION GAP 10.0 5.0 - 15.0 MMOL/L 01/15/2025 2:50 PM CDT [facility] BUN CREATININE RATIO 16.3 6 - 26 01/15/2025 2:50 PM CDT [facility] A/G RATIO 1.1 1.0 - 2.5 RATIO 01/15/2025 2:50 PM CDT [facility] GFR ESTIMATE >90 >90 ML/MIN/1.7 3 M2 01/15/2025 2:50 PM CDT [facility] Comment: NOTE: eGFR is not calculated for patients <18 years of age. This is an estimated GFR calculation using the new CKD EPI creatinine equation without race and so does not require a correction factor for race. This estimated GFR should not be used for calculating drug doses. 01/15/2025 1:58 PM CDT Zachary Mayorga [facility] LABORATORY Final Res ult Performing Organization Address City/[facility]/ZIP Co de Phone Number [facility] [address] [facility] [place] [address], [place] * CHORIONIC GONADOTROPIN HCG QL (01/15/2025 1:58 PM CDT) Pathologist [facility] PREG SCREEN-SERUM NEGATIVE NEGATIVE 01/15/2025 2:47 PM CDT [facility] 01/15/2025 1:58 PM CDT [facility] LABORATORY Final Res ult [facility] [address] [facility] [place] [address], [place] * CBC W/DIFF AUTOMATED (01/15/2025 1:58 PM CDT) Only the most recent of3 resultswithin the time period is included. [facility] WBC 9.31 4.50 - 11.00 x10'3/uL 01/15/2025 2:25 PM CDT [facility] RBC 5.12 4.00 - 5.20 x10'6/uL 01/15/2025 2:25 PM CDT [facility] HGB 14.4 12.0 - 16.0 G/DL 01/15/2025 2:25 PM CDT [facility] HCT 42.7 38.0 - 48.0 % 01/15/2025 2:25 PM CDT [facility] MCV 83.4 80.0 - 100.0 FL 01/15/2025 2:25 PM CDT [facility] MCH 28.1 26.0 - 34.0 PG 01/15/2025 2:25 PM CDT [facility] MCHC 33.7 31.0 - 37.0 G/DL 01/15/2025 2:25 PM CDT [facility] RDW 12.7 11.6 - 14.8 % 01/15/2025 2:25 PM CDT [facility] PLT 360 130 - 400 x10'3/uL 01/15/2025 2:25 PM CDT [facility] MPV 10.7 7.0 - 12.0 FL 01/15/2025 2:25 PM CDT [facility] CBC COMMENT AUTOMATED RBC MORPHOLOGY AND PLATELET EVALUATION NORMAL 01/15/2025 2:25 PM CDT [facility] NEUTROPHILS % 60.4 40.0 - 74.0 % 01/15/2025 2:25 PM CDT [facility] LYMPHOCYTES % 31.8 14.0 - 46.0 % 01/15/2025 2:25 PM CDT [facility] MONOCYTES % 6.3 4.0 - 13.0 % 01/15/2025 2:25 PM CDT [facility] EOSINOPHILS 0.8 0.0 - 7.0 % 01/15/2025 2:25 PM CDT [facility] BASOPHILS 0.4 0.0 - 3.0 % 01/15/2025 2:25 PM CDT [facility] IMMATURE GRANS % 0.3 0.0 - 0.43 % 01/15/2025 2:25 PM CDT [facility] NRBC % 0.0 % 01/15/2025 2:25 PM CDT [facility] ABS. NEUTROPHILS TOTAL 5.62 1.69 - 7.81 x10'3/uL 01/15/2025 2:25 PM CDT [facility] ABS. LYMPHOCYTES 2.96 0.21 - 5.42 x10'3/uL 01/15/2025 2:25 PM CDT [facility] ABS. MONOCYTES 0.59 0.04 - 1.37 x10'3/uL 01/15/2025 2:25 PM CDT [facility] ABS. EOSINOPHILS 0.07 0.00 - 0.68 x10'3/uL 01/15/2025 2:25 PM CDT [facility] ABS. BASOPHILS 0.04 0.00 - 0.08 x10'3/uL 01/15/2025 2:25 PM CDT [facility] ABS. IMMATURE GRANULOCYTES 0.03 0.00 - 0.06 x10'3/uL 01/15/2025 2:25 PM CDT [facility] ABS. NUCLEATED RBC'S 0.00 0.00 - 0.01 x10'3/uL 01/15/2025 2:25 PM CDT [facility] 01/15/2025 1:58 PM CDT us Zachary Stokes DO LABORATORY Final Res ult [address] [place] [address], * MAGNESIUM (01/15/2025 1:58 PM CDT) Only the most recent of2 resultswithin the time period is included. MAGNESIUM 2.0 1.8 - 2.4 MG/DL 01/15/2025 2:50 PM CDT [facility] 01/15/2025 1:58 PM CDT Zachary Stokes DO LABORATORY Final Res ult Performing Organization Address City/[facility]/ZIP Co de Phone Number [facility] [address] [address], [place] * TSH W/REFLEX (12/21/2024 3:52 PM CDT) TSH 2.182 0.358 - 3.74 uIU/ML 12/21/2024 4:24 PM CDT [facility] Comment: HIGH DOSES OF BIOTIN MAY INTERFERE WITH THIS TEST RESULT. CORRELATION TO CLINICAL HISTORY AND PRESENTATION RECOMMENDED. FREE T4 NOT INDICATED 12/21/2024 3:52 PM CDT Lilian Dial MD LABORATORY Final Resu lt Performing Organization Address [facility]/RUST Co de Phone Number [facility] [address] [place] [address], [place] [phone] * ETHANOL (12/21/2024 3:52 PM CDT) ALCOHOL S/P/B <0.003 <0.003 G/DL 12/21/2024 4:24 PM CDT [facility] 12/21/2024 3:52 PM CDT Lilian Dial MD LABORATORY Final Resu lt Performing Organization Address City/[facility]/ZIP Co de Phone Number [facility] [address] [place] [address], [place] [phone] * CORONAVIRUS (COVID-19) MOLECULAR (12/21/2024 3:45 PM CDT) [facility] CORONAVIRUS SARS COV 2 RNA NEGATIVE NEGATIVE 12/21/2024 4:33 PM CDT [facility] Comment: NEGATIVE RESULTS DO NOT [...] SPECIMEN TYPE NASAL 12/21/2024 4:13 PM CDT [facility] NASOPHARYNGEAL SWAB / Unknown 12/21/2024 3:45 PM CDT Lilian Dial MD MICROBIOLOGY - GENERAL ORD ERABLES Final Result [facility] [address] [place] [address], [place] [phone] * (ABNORMAL) DRUG SCREEN RAPID (12/21/2024 3:45 PM CDT) [facility] AMPHETAMINE (U) NONE DETECTED NONE DETECTED 12/21/2024 4:35 PM CDT [facility] BARBITURATES SCREEN (U) NONE DETECTED NONE DETECTED 12/21/2024 4:35 PM CDT [facility] BENZODIAZEPINES SCREEN (U) DETECTED(A) NONE DETECTED 12/21/2024 4:35 PM CDT [facility] BUPRENORPHINE SCREEN (U) NONE DETECTED NONE DETECTED 12/21/2024 4:35 PM CDT [facility] COCAINE METABOLITES (U) NONE DETECTED NONE DETECTED 12/21/2024 4:35 PM CDT [facility] METHAMPHETAMINE (U) NONE DETECTED NONE DETECTED 12/21/2024 4:35 PM CDT [facility] METHADONE (U) NONE DETECTED NONE DETECTED 12/21/2024 4:35 PM CDT [facility] OPIATE SCREEN (U) NONE DETECTED NONE DETECTED 12/21/2024 4:35 PM CDT [facility] OXYCODONE SCREEN (U) NONE DETECTED NONE DETECTED 12/21/2024 4:35 PM CDT [facility] PHENCYCLIDINE PCP (U) NONE DETECTED NONE DETECTED 12/21/2024 4:35 PM CDT [facility] CANNABINOIDS SCREEN (U) NONE DETECTED NONE DETECTED 12/21/2024 4:35 PM CDT [facility] TRICYCLIC ANTIDEPRESSANT SCREEN (U) NONE DETECTED NONE DETECTED 12/21/2024 4:35 PM CDT [facility] Comment: NOTE: RESULTS OF THIS [...] Dial MD URINE ORDERABLES Final Res ult [facility] [address] [place] [address], [place] [phone] * TEST URINE (12/21/2024 3:45 PM CDT) URINE HCG TEST NEGATIVE NEGATIVE 12/21/2024 4:25 PM CDT [facility] Comment: VERY DILUTE URINE SPECIMENS MAY NOT CONTAIN E COMMERCE MERCHANT LEVELS OF HCG. IF IS STILL SUSPECTED, A SERUM HCG TEST IS RECOMMENDED. URINE SPECIMEN FROM URETHRA / Unknown 12/21/2024 3:45 PM CDT us Lilian Dial MD URINE ORDERABLES Final Res ult [facility] [address] [place] [address], [place] [phone] * (ABNORMAL) URINALYSIS, AUTO, COMPLETE (12/21/2024 3:45 PM CDT) COLOR (U) DARK YELLOW 12/21/2024 4:27 PM CDT [facility] TRANSPARENCY CLEAR 12/21/2024 4:27 PM CDT [facility] SPECIFIC GRAVITY (U) 1.020 1.000 - 1.030 12/21/2024 4:27 PM CDT [facility] U PH 6.0 5.0 - 9.0 12/21/2024 4:27 PM CDT [facility] LEUKOCYTES (U) NEGATIVE NEGATIVE 12/21/2024 4:27 PM CDT [facility] NITRITES NEGATIVE NEGATIVE 12/21/2024 4:27 PM CDT [facility] PROTEIN RANDOM (U) NEGATIVE NEGATIVE 12/21/2024 4:27 PM CDT [facility] GLUCOSE (U) NEGATIVE NEGATIVE 12/21/2024 4:27 PM CDT [facility] KETONES MG/DL (U) NEGATIVE NEGATIVE 12/21/2024 4:27 PM CDT [facility] BILIRUBIN (U) NEGATIVE NEGATIVE 12/21/2024 4:27 PM CDT [facility] BLOOD (U) 3+(A) NEGATIVE 12/21/2024 4:27 PM CDT [facility] WBC/HPF 0-5 0 - 5 /HPF 12/21/2024 4:27 PM CDT [facility] RBC/HPF 50-100 0 - 5 /HPF 12/21/2024 4:27 PM CDT [facility] EPI/HPF FEW /HPF 12/21/2024 4:27 PM CDT [facility] URINE SPECIMEN OBTAINED BY CLEAN CATCH PROCEDURE / Unknown 12/21/2024 3:45 PM CDT us Lilian Dial MD URINE ORDERABLES Final Res ult [facility] [address] [place] [address], [place] [phone] * SYPHILIS AB (DIAGNOSTIC) WITH CASCADING REFLEX (12/16/2024 10:19 AM CDT) SYPHILIS IGG IGM AB NON-REACTI VE NON-REACTI VE 12/16/2024 3:08 PM CDT [facility] Comment: No serologic evidence of syphilis. No follow-up necessary unless clinically indicated. 12/16/2024 10:1 9 AM CDT us Kelin Garza DO LABORATORY Final Resu lt [facility] [address] [place] [address], [place] [phone] * HIV 1 ANTIGEN(S), WITH HIV-1 AND HIV-2 ANTIBODIES (12/16/2024 10:19 AM CDT) Only the most recent of2 resultswithin the time period is included. HIV 1/2 AB+ HIV1 P24 AG NON-REACTI VE NON-REACTI VE 12/16/2024 3:41 PM CDT [facility] 12/16/2024 10:1 9 AM CDT Kelin Guanako Garza DO LABORATORY Final Resu lt [facility] [address] [place] [address], [place] [phone] * IRON SAT PANEL (IRON,IBC,%SAT) (12/16/2024 10:19 AM CDT) IRON 90 50.0 - 170.0 MCG/DL 12/16/2024 2:48 PM CDT [facility] IRON BINDING CAPACITY 402 250 - 450 MCG/DL 12/16/2024 2:48 PM CDT [facility] IRON SATURATION 22 20 - 55 % 2:48 PM CDT [facility] 12/16/2024 10:1 9 AM CDT us Tara Maki [employer]CH[employer] LABORATORY Final Result Performing Organization Address City/[facility]/ZIP Co de Phone Number [facility] [address] [place] [address], [place] [phone] * VITAMIN B-12 (12/16/2024 10:19 AM CDT) VITAMIN B12 S/P/B 511 254 - 1,320 PG/ML 12/16/2024 3:13 PM CDT [facility] 12/16/2024 10:1 9 AM CDT us Tara RODRIGUEZP LABORATORY Final Result [facility] [address] [place] [address], [place] [phone] * HEPATITIS C ANTIBODY (12/16/2024 10:19 AM CDT) HEPATITIS C AB NON-REACTI VE NON-REACTI VE 12/16/2024 3:40 PM CDT [facility] 12/16/2024 10:1 9 AM CDT Kelin Villatorouster DO LABORATORY Final Resu lt [facility] [address] [place] [address], [place] [phone] * HEPATITIS B SURFACE AG, EIA (12/16/2024 10:19 AM CDT) Pathologist [facility] HEPATITIS B SURFACE AG NON-REACTI VE NON-REACTI VE 12/16/2024 3:07 PM CDT [facility] 12/16/2024 10:1 9 AM CDT Kelin Mujica Armbruster LABORATORY Final Resu lt [facility] [address] [place] [address], [place] [phone] * FERRITIN (12/16/2024 10:19 AM CDT) FERRITIN 20.7 8.0 - 388.0 NG/ML 12/16/2024 2:48 PM CDT [facility] 12/16/2024 10:1 9 AM CDT us Tara a[facility]ki [facility] Final Result [facility] [address] [place] [address], * HEMOGLOBIN, GLYCOSYLATED (11/26/2024 9:25 AM CDT) HGB A1C 4.9 <5.7 % 11/26/2024 3:53 PM CDT [facility] Comment: ADA GUIDELINES 2010 5.7 TO 6.4% INCREASED RISK OF DIABETES > OR = 6.5% CONSISTENT WITH DIABETES ESTIMATED AVG GLUCOSE 94 mg/dL 11/26/2024 3:53 PM CDT [facility] 11/26/2024 9:25 AM CDT Tara Maki [facility] Final Result [facility] [address] [place] [address], * (ABNORMAL) LIPID PANEL (11/26/2024 9:25 AM CDT) CHOLESTEROL 171 <200 MG/DL 11/26/2024 2:42 PM CDT [facility] TRIGLYCERIDES 220(H) <150 MG/DL 11/26/2024 2:42 PM CDT [facility] HDL 35(L) >40.0 MG/DL 11/26/2024 2:42 PM CDT [facility] LDL (CALCULATED) 92 <100 MG/DL 11/26/2024 2:42 PM CDT [facility] Comment:CALCULATED USING THE FRIEDEWALD EQUATION NON HDL CHOLESTEROL 136(H) <130 MG/DL 11/26/2024 2:42 PM CDT [facility] CHOL/HDL RATIO 4.9(H) 0.0 - 4.5 11/26/2024 2:42 PM CDT [facility] VLDL CALCULATION 44 5 - 55 MG/DL 11/26/2024 2:42 PM CDT [facility] LIPID INTERPRETATION 11/26/2024 2:42 PM CDT [facility] Comment: NIH CONCENSUS REPORT RECOMMENDATIONS: ADULT CHILD LOW RISK: CHOLESTEROL <200 <170 TRIGLYCERIDE <150 --- HDL >=60 --- LDL <100 <110 BORDERLINE: CHOLESTEROL 200-239 170-199 TRIGLYCERIDE 150-199 --- HDL 40-59 --- LDL 100-159 110-129 HIGH RISK: CHOLESTEROL >=240 >=200 TRIGLYCERIDE >=200 --- HDL <40 --- LDL >=160 >=130 11/26/2024 9:25 AM CDT Tara Maki [facility] Final Result [facility] [address] [place] [address], [place] [phone] * THYROID STIM HORMONE TSH (11/26/2024 9:25 AM CDT) TSH 0.933 0.358 - 3.74 uIU/ML 11/26/2024 2:42 PM CDT [facility] Comment: HIGH DOSES OF BIOTIN MAY INTERFERE WITH THIS TEST RESULT. CORRELATION TO CLINICAL HISTORY AND PRESENTATION RECOMMENDED. 11/26/2024 9:25 AM CDT us Tara Maki [facility] Final Result [facility] [address] [place] [address], [place] [phone] * INSULIN,TOTAL (11/26/2024 9:25 AM CDT) INSULIN 6.9 <=18.4 uIU/mL 12/04/2024 10:52 AM CDT [facility] Comment: Risk: Optimal < or = 18.4 Moderate NA High >18.4 Adult cardiovascular event risk category cut points (optimal, moderate, high) are based on Insulin Reference interval studies performed at [facility] in 2021. Test Performed by [facility], [facility], [address] [place], [place] Pierre Lau M.D., Ph.D., Director of Laboratories , [place] [id number] 11/26/2024 9:25 AM CDT Tara Maki [employer] [facility] Final Result [facility] [place] [id number] [place], [place] , from Last 3 Months Insurance [employer] MEDICAID Care Teams Color Artist Relationship Specialty Start Date End Date Tara Maki, LAKISHA [address] [place] [address] [place] [address] PCP - General Nurse Practitioner Family 11/19/24
--- OUTSIDE RECORDS SUMMARY | 2025-02-15 21:04 | XMS_ITS | Encounter Summary ---
Author Organization [facility] Address [facility] [place] [address] Care Team Providers Care Java Web Engineer Name Role Phone None, Provider Primary Care Provider Neha Jones APRN Primary Care Provider [phone] Tara Maki Primary Care Provider [phone] Encounter Details Date Type Department Care Team (Late st Contact Info) Description 10/15/2024 MyChart Message Enc [facility] [address] [place] [address] Neha Araiza APRN [address] [place] [phone] Medication Social History Tobacco Use Types Packs/Day [...] st Contact Info) Description 02/16/2025 4:00 PM BARGE ENGINEER Appointment [facility] [address] [place], [place] [phone] Kelin Garza, 9447 [facility] [address] [place] [phone] 02/25/2025 7:30 AM BARGE ENGINEER Appointment [facility] Nuclear Medicine [address] [place] [address] Markus Franco MD 3 [facility] [address] [place] [address] 02/25/2025 8:00 AM BARGE ENGINEER Appointment [facility] Nuclear Medicine [address] [place] [address] Markus Franco MD 3 [facility] [address] [place] [address] 02/25/2025 9:00 AM BARGE ENGINEER Appointment [facility] Nuclear Medicine [address] [place] [address] Markus Franco MD 3 [facility] [address] [place] [address] 02/25/2025 10:00 AM BARGE ENGINEER Appointment [facility] Nuclear Medicine [address] [place] [address] Markus Franco MD 3 [facility] [address] [place] [address] 02/25/2025 11:00 AM BARGE ENGINEER Appointment [facility] Nuclear Medicine [address] [place] [address] Markus Franco MD 3 [facility] [address] [place] [address] 02/25/2025 12:00 PM BARGE ENGINEER Appointment [facility] Nuclear Medicine [address] [place] [address] Markus Franco MD [address] [place] [address] [address] [place] [address] 03/04/2025 8:20 AM BARGE ENGINEER Office Visit [facility] Medical Group Multispecialty Care - [address], [address] [place] [address] Bonita Murray MD [address] [place] [address] [place] [address] documented as of this encounter Visit Diagnoses Not on filedocumented in this encounter Additional Health Concerns Infection Onset Date Last Indicated Resolved Time COVID-19 Rule Out 12/21/2024 12/21/2024 12/21/2024 4:33 PM CDT Assessment Noted Time PHQ-9 Depression Total Score: 15 07/2 025 3:00 PM CDT documented as of this encounter Care Teams Java Web Engineer Relationship Specialty Start Date End Date None, Provider, PCP - General UNKNOWN PHYSICIAN SPECIALTY 09/11/24 11/01/24 Neha Araiza APRN [address] [place] [address] PCP - General NURSE PRACTITIONER 11/02/24 11/18/24 Tara Maki FNP [address] [place] [address] [place] [address] PCP - General Nurse Practitioner Family 11/19/24 documented as of this encounter
--- OUTSIDE RECORDS SUMMARY | 2025-02-15 21:04 | XMS_ITS | Continuity of Care Document ---
Author Organization [facility], [id number] [address] [facility] Address [address] [place] [address] Assessment No assessment recorded. Plan of Treatment Reminders Order Date Submit Date Provider Last Modified By Organization Details Last Modified Time Details Appointments ANNUAL- EST 15 2025 01:00P M NASIR MCKEON DO Not available Not available Not available Lab HBsAg (hepati tis B surface Ag), serum 2024 025 [facility] Registration Department, [address], [place], [address], 12/16/2024 16:26:45 hepatit is C Ab, serum 2024 025 [facility], [address], [place], [address], 12/16/2024 17:06:46 HIV 1+2 AB + HIV 1 p24 Ag, qualita tive immunoa ssay, serum 2024 025 [facility] Registration [facility], [address], [place], [address], 12/16/2024 17:02:50 syphili s Ab, igg 2024 025 [facility] Registration [facility], [address] [place], [address], 12/16/2024 16:29:06 CT + NG + TV, DNA, urine/s wab 2024 025 [facility] ([facility]), [address] [facility] , [facility] [address], [place], [address], 12/04/2024 14:58:45 Referral None recorde d. Procedures None recorde d. Surgeries None recorde d. Imaging None recorde d. Medication Orders None recorde d. Patient TargetsNo targets recorded. Patient Instructions Encounter Date Encounter Id Patient Instructions Last Modified By Organization Details Last Modified Time 12/03/2024 [id number] A healthy lifest yle: care instructions Not [...] Testing for Inheritable Disorders (Carrier Screening): The [employer] [employer] recommends that [...] logis ts, LLC d/b/a Cheryl weber, [address] [facility] [address], [place] [address] , Jolene Crespo ra, DO, Labor atory [facility], CLIA# [id number] Not Available [facility] ([facility]) [address] [facility] [address], [place], [address], 12/04/2024 14:58:45 12/04/1912/04/2024 CHLAM YDIA, GONOR RHOEA [...] logis ts, LLC d/b/a Cheryl weber, [address], [place] [address] , Jolene Crespo ra, DO, Labor atory [facility], CLIA# [id number] Not Available [facility] ([facility]) [address] [place] [address] [address], [place], [address], 12/04/2024 14:58:45 12/04/19 25 12/04/2024 CHLAM YDIA, [...] logis ts, LLC d/b/a Cheryl weber, [address], [place] [address] , Jolene Crespo ra, DO, Labor atory [facility], CLIA# [id number] Not Available [facility] ([facility]) [address], [place], [address], 12/04/2024 14:58:45 Result Notes None recorded. Problems Name Problem SNOMED Code Status Onset Date Resolution Date Notes Provider Name and Address Organization Details Recorded Time Hypothyroi dism 38970818 Active Connie Weston null, [place] - [facility] 16:06:29 Fibromyalg ia 766356284 Active Connie West[place] [facility] 5 16:06:50 Anxiety 96693918 Active Connie [place] null[place] - [facility] 5 16:07:00 Irritable bowel syndrome 94669245 Active 2024 NASIR MCKEON [address] [facility] [address], [place], [address], [facility] 5 16:16:36 Migraine 47423765 Active 2024 [facility] [address] [facility] [address], [place], [address], [facility] 5 16:17:11 Premenstru al tension syndrome 51463645 Active 2024 NASIR MCKEON [address] [facility] [address], [place], [address], [facility] 5 22:54:49 Abnormal uterine bleeding 506888450609 00 Active 2024 NASIR MCKEON [address] [facility] [address], [place], [address], [facility] 5 13:06:24 Problem Notes None recorded. Procedures Surgical History Date Name Laterality Status Provider Name and Address Organization Details Recorded Time 025 [facility] Annual Well-Woman Visit age 18-39 [place] [address] [place] [address] completed NASIR LISA MKIE [address] [facility] [address], [place], [address], [facility] 12/03/2024 16:11:37 01/01/2 023 Date of Last Pap Smear completed Connie Weston [place] - [facility] 12/03/2024 16:07:22 016 Date of Last Colonoscopy completed Connie Weston [place] [facility] 12/03/2024 16:07:54 Tonsillectomy completed Connie [place]on [place] [facility] 12/03/2024 15:59:58 Appendectomy completed Connie [place]on [place] [facility] 12/03/2024 15:59:58 Colonoscopy completed Connie Weston [place] [facility] 12/03/2024 15:59:58 cholecystectomy completed Connie Weston [place] [facility] 12/03/2024 16:08:42 aspiration of spinal cyst completed Connie Weston [place] [facility] 12/03/2024 16:09:03 Imaging Results None recorded. Procedure Notes None recorded. Medical Equipment None Reported. Allergies Allergen ID Allergen Name Allergen Category Reaction Reaction Severity Criticality Documentation Date Start Date Code Code System Note Provider Name and Address Organization Details Recorded Time 606029 prednison e medicatio n Not available Not available Not available 12/03/2024 8640 RxNorm Connie Weston null, [place] - [facility] 15:59:58 453283 propranol ol medicatio n Not available Not available Not available 12/03/2024 8787 RxNorm Connie [place] [facility] 5 16:04:06 812752 Seroquel medicatio n Not available Not available Not available 12/03/2024 24157 RxNorm Connie West[place] null[place] - [facility] 5 16:04:23 Medications Name Sig Start Date [...] Updated DateTime 12/03/2024 152.4 cm 45.1 kg/m2 601588.84 g 126/80 mm[Hg] Connie Weston [facility] 12/03/2024 16:03:28 Social History Question Answer Notes LastModified by Organizat ion Details LastModified Time Tobacco Smoking Status Never Smoker Connie shepherd [facility] 12/03/2024 15:59:58 Do You Have An Advance Directive? No [email or web address] Information not available 12/03/2024 If You Are , What Was Your Level Of Alcohol Consumption Prior To ? None [email or web address] Information not available 12/03/2024 What Is Your Level Of Caffeine Consumption? Occasional [email or web address] Information not available 12/03/2024 What Type Of Diet Are You Following? REGULAR [email or web address] Information not available 12/03/2024 What Is Your Relationship Status? Single [email or web address] Information not available 12/03/2024 Sex: Female Functional Status Question Answer Note LastModified by Organizat ion Details LastModified Time Do you use any illicit or recreational drugs? No [email or web address] Information not available 12/03/2024 What is your level of alcohol consumption? None [email or web address] Information not available 12/03/2024 Are you currently employed? No [email or web address] Information not available 12/03/2024 Mental Status None recorded. Family History Relationship Description Onset Age of this Age Resolved Age Notes LastModified by Organization Details LastModified Time Brother Depressive disorder Not available 2024 15:59:58 Father Hypertensive disorder [email or web address] Not available 2024 15:59:58 Paternal Grandmother Malignant neoplasm of breast [email or web address] Not available 2024 15:59:58 Mother Depressive disorder [email or web address] Not available 2024 15:59:58 Mother Osteoporosis Not avai lable 12/03/2024 15:59:58 Mother Mental disorder [email or web address] Not available 2024 15:59:58 Unspecified Relation Anxiety disorder [email or web address] Not available 2024 15:59:58 Unspecified Relation Mental disorder [email or web address] Not available 2024 15:59:58 Maternal Grandmother Malignant neoplasm of breast [email or web address] Not available 2024 15:59:58 Maternal Grandfather Depressive disorder [email or web address] Not available 2024 15:59:58 Paternal Grandfather Neoplasm of prostate [email or web address] Not available 2024 15:59:58 Paternal Grandfather Substance abuse [email or web address] Not available 2024 15:59:58 Medical History Condition [...] Immunizations Vaccine Type Date Status Note Provider Jerry e and Address Organization Details Recorded Time Tdap 12/21/2024 completed Not Available [facility] 02/04/2025 12:24:57 Influenza, MDCK, trivalent, PF 01/21/2025 completed Not Available [facility] 12:24:57 Past Encounters Encounter ID Performer Location Encounter Start Date Encounter Closed Date Diagnosis/Indication Diagnosis SNOMED-CT Code Diagnosis ICD10 Code Diagnosis IMO Codes Diagnosis Note [id number] NASIR [place] [facility]KE [id number] [facility] [address] [place] [address] 12/03/2024 15:16:41 12/03/2024 16:43:03 Gynecologic examination 11844140 Z01.419 - Discussed the impact of stress on hormonal changes and advised monitoring menstrual cycle regularity .- Start Loestrin Depression screening 171 277315 Z13.31 - Screening for depression as part of health maintenanc e. Mental hea lth screening 576092412 Z13.39 Infection screening 4985 26003 Z11.3 Premenstru al tension syndrome 75729100 N94.3 15160 - Discussed control options to manage symptoms, recommende d follow-up in two months to assess effectiven ess. History of breast problem 285461803 Z87.156 2277136 - Report if recurrence History of migraine 5884 04959 Z86.69 9733542 - Reports history of menstrual migraine- Considered control with estrogen and progestero ne, advised keeping a headache diary. Health Concerns Section Related Observation LastModified by Organization Detai ls LastModified Time None Recorded Concern Status LastModified by Organization Details LastModified Time None Recorded Payers Encounter Date Sequence Insurance Name Policy Number Policy Pérez Covered Member ID Pérez Member ID Guarantor Name 12/03/2024 1 [facility] (MEDICARE REPLACEMENT/A DVANTAGE - HMO) [id number] Nehal Lerma [id number] Nehal Lerma Notes Date Note Type Note Provider Name and Address Organization Details Recorded Time 5 text/html [facility] Annual Well-Women Visit Age 30-39Reported by PatientPreventive [...] normal,last hpv negative, andreviewed and documented in substance abuse technician history. For mammography, patient reportsn/a. For bone density study, patient reportsn/a. For colorectal screening, patient reportsn/a. For diabetes screening, patient yssrluqpy-gi-asli. For lipid screening, patient reumcfjod-xx-gbte. For thyroid screening, patient kyxqhtbxj-jg-ldvo.Heal th Risk AnalysisFor medical risk factors, patient [...] her health maintenance. NASIR MCKEON DO [address] [facility] [address], [place], [address], [facility] 12/08/2024 22:58:11 OBGyn Episode No OBEpisode recorded.
--- OUTSIDE RECORDS SUMMARY | 2025-02-15 21:04 | XMS_ITS | Encounter Summary ---
Author Organization [facility] Address [address] [place] [address] Care Team Providers Care Physician Relations Representative Name Role Phone Tara Maki [facility] Primary Care Provider [phone] Encounter Details Date Type Department Care Team (Late st Contact Info) Description 12/16/2024 Results Follow-Up [facility] [address] [place] [address] Tara Maki [facility] [address] [place] [address] CBC W/DIFF AUTOMATED, IRON SAT PANEL (IRON,IBC,%SAT), [...] st Contact Info) Description 02/16/2025 4:00 PM EXPLOSIVES DETONATOR Appointment [facility] Ultrasound [address] [place] [id number] Kelin Garza, DO 9[address] [facility] [address] [place] [address] 02/25/2025 7:30 AM EXPLOSIVES DETONATOR Appointment [facility] [address] [place] [address] Markus Franco MD [address] [address] 02/25/2025 8:00 AM EXPLOSIVES DETONATOR Appointment [facility] [address] [place] [address] Markus Franco MD [address] [address] 02/25/2025 9:00 AM EXPLOSIVES DETONATOR Appointment [facility] [address] [place] [address] Markus Franco MD [address] [address] 02/25/2025 10:00 AM EXPLOSIVES DETONATOR Appointment [facility] Nuclear Medicine [address] [place] [address] Markus Franco MD [address] [address] 02/25/2025 11:00 AM EXPLOSIVES DETONATOR Appointment [facility] [address] [place] [address] Markus Franco MD [address] [address] 02/25/2025 12:00 PM EXPLOSIVES DETONATOR Appointment [facility] Nuclear Medicine [address] [place] [address] Markus Franco MD 3 [facility] [address] [place] [address] 03/04/2025 8:20 AM EXPLOSIVES DETONATOR Office Visit [facility] Medical Group Multispecialty Care - [facility] [address] [facility], [address] [place] [address] Bonita Murray MD [address] [address] documented as of this encounter Visit Diagnoses Not on filedocumented in this encounter Additional Health Concerns Infection Onset Date Last Indicated Resolved Time COVID-19 Rule Out 12/21/2024 12/21/2024 12/21/2024 4:33 PM CDT Assessment Noted Time PHQ-9 Depression Total Score: 15 025 1:22 PM CDT documented as of this encounter Care Teams Physician Relations Representative Relationship Specialty Start Date End Date Tara Maki FNP [address] [place] [address] [place] [address] PCP - General Nurse Practitioner Family 11/19/24 documented as of this encounter
[2025-02-15] MEDS: ONDANSETRON INJ 4 MG/2 ML VIAL IV PUSH (22:32)
[2025-02-15] MEDS: MORPHINE SULFATE (*CRX) 4 MG/ML INJ IV PUSH (22:32)
--- NOTE | 2025-02-15 22:51 | ED_ITS ---
HPI - Abdominal Pain General Chief Complaint: Abdominal Pain Stated Complaint: abd pain Time Seen by Provider: 02/15/25 20:55 Source: patient and old records reviewed Mode of arrival: ambulatory Limitations: no limitations History of Present Illness HPI narrative: Patient is a 34 y/o female who presents to the ED with c/o RLQ abd pain. Per records, patient has hx of chronic abdominal pain, IBS, fibromyalgia. She reports having pain in her R lower abdomen for the past 1 month. States it has become worse over the past 1 week and worse again today. States pain is worse with eating. States she becomes very nauseous when she tries to eat. She has tried taking Zofran, Reglan, promethazine at home without improvement. Denies actual vomiting. Denies diarrhea. States she has been more on the constipated side recently. Also reports having to strain to urinate. Denies dysuria or hematuria. Denies fevers. Patient reports she was seen in the ED here around 1 month ago for similar symptoms and was diagnosed with a right-sided ovarian cyst. She has seen her OBGYN for this and is scheduled for an ultrasound tomorrow Related Data Allergies Allergy/AdvReac Type Severity Reaction Status Date / Time propranolol AdvReac Intermediate Rash Verified 02/15/25 21:07 quetiapine (From Seroquel) AdvReac Intermediate Rash Verified 02/15/25 21:07 Review of Systems 2 Review of Systems: All systems reviewed & are unremarkable except as noted in HPI. All systems reviewed & are unremarkable except as noted in HPI and below Exam 2 Narrative: GENERAL: Well appearing, morbidly obese with BMI of 44.1, non-toxic, in no acute distress. HEAD: Normocephalic, atraumatic. RESPIRATORY: Airway patent, respirations nonlabored. Clear to auscultation bilaterally, no rales, rhonchi, wheezing. CARDIOVASCULAR: Regular rate and rhythm without murmurs, rubs, or gallops. ABDOMINAL: Soft, mild diffuse TTP in right lower/right mid abdomen, no rebound, nondistended. Normoactive BS. MUSCULOSKELETAL: Moves all extremities. No gross deformities. SKIN: Warm, dry, normal color. NEURO: A&O X3. Speech clear. Cranial nerves II-XII grossly intact. Steady gait. No ataxic movements. PSYCHIATRIC: Somewhat flat affect. Normal interaction. Course Vital Signs Vital signs: Vital Signs Temperature 97.6 F 02/15/25 19:06 Pulse Rate 93 02/15/25 19:06 Respiratory Rate 16 02/15/25 19:06 Blood Pressure 155/111 H 02/15/25 19:06 Pulse Oximetry 98 02/15/25 19:06 Oxygen Delivery Room Air 02/15/25 19:06 Temperature 98.1 F 02/16/25 00:05 Pulse Rate 78 02/16/25 00:05 Respiratory Rate 16 02/16/25 00:05 Blood Pressure 133/97 H 02/16/25 00:05 Pulse Oximetry 97 02/16/25 00:05 Oxygen Delivery Room Air 02/15/25 21:04 MDM - Abdominal Pain MDM Narrative Medical decision making narrative: Patient presented to ED with right lower abdominal pain for the past 1 month, worsening over the past 1 week. Hx of chronic abd pain. Associated with nausea, constipation, trouble urinating at times. Vital signs are stable upon arrival. Patient in no ottoniel distress. Laboratory studies with mild WBC 11.6, otherwise grossly unremarkable. UA without signs of infection. CT scan of abdomen/pelvis was obtained and w/o acute process. No surgery findings. No obstruction. No adnexal abnormalities. Discussed lab and imaging findings, overall reassuring workup with patient. She is feeling improved with supportive therapy. Discussed possibility of IBS/constipation causing symptoms, gas pains. Discussed further management of constipation as well as Bentyl. Patient has previously been prescribed Bentyl, but states she has not been taking this lately as she was concerned it was causing her constipation. She states her last bowel movement was today. Patient is established with an outside GI doctor. Recommended close follow-up with GI for further evaluation of ongoing abdominal pain. Discussed strict return precautions. Patient is in agreement with plan. Feels comfortable going home. Discharged in stable condition. Medical Records Attestation: I reviewed the patient's medical records. Lab Data Attestation: I reviewed the patient's lab results. 02/15/25 19:37 02/15/25 19:37 Labs: Lab Results 02/15/25 02/15/25 Range/Units 19:37 19:41 WBC 11.6 H (4.5-10.0) K/mm3 RBC 5.28 (4.2-5.4) M/mm3 Hgb 14.9 (12.0-15.0) g/dL Hct 45.0 (37.0-47.0) % MCV 85.2 (80-100) fl MCH 28.2 (26-34) pg MCHC 33.1 (32-36) g/dl RDW 13.1 (11.5-14.5) % Plt Count 369 (150-375) k/mm3 MPV 10.2 (7.4-10.4) fl Immature Gran % (Auto) 0.6 H (0-0.5) % Neut % (Auto) 65.4 (45.5-73.1) % Lymph % (Auto) 25.2 (18.3-44.2) % Daniels % (Auto) 8.0 (2.6-8.5) % Eos % (Auto) 0.3 (0-4.4) % Baso % (Auto) 0.5 (0.2-1.2) % Lymph # (Auto) 2.93 (0.9-3.2) K/mm3 Daniels # (Auto) 0.9 H (0.1-0.6) K/mm3 Eos # (Auto) 0.0 (0-0.3) K/mm3 Baso # (Auto) 0.1 (0.0-0.1) K/mm3 Abs Immat Gran (auto) 0.07 H (0.00-0.031) K/mm3 Absolute Neuts (auto) 7.6 H (1.3-6.7) K/mm3 Absolute Nucleated RBC 0.000 (0.0-0.012) K/mm3 Nucleated RBC % 0.0 (0.0-0.2) % Sodium 136 L (137-145) mmol/L Potassium 4.1 (3.4-5.0) mmol/L Chloride 102 (98-107) mmol/L Carbon Dioxide 24 (22-30) mmol/L Anion Gap 10 (4-12) mmol/L BUN 17 (7-17) mg/dL Creatinine 0.73 (0.7-1.0) mg/dL Estim Creat Clear Calc 105 ml/min Estimated GFR > 60 (59 - ) Glucose 114 H (65-110) mg/dL Calcium 9.5 (8.4-10.2) mg/dL Total Bilirubin 0.4 (0.2-1.3) mg/dL AST 22 (14-36) U/L ALT 29 (6-35) U/L Alkaline Phosphatase 65 (38-126) U/L Total Protein 7.8 (6.3-8.2) g/dL Albumin 4.5 (3.5-5.1) g/dL Lipase 62 (23-300) U/L Urine Color Yellow (Yellow) Urine Appearance Clear (Clear) Urine pH 5.5 (5.0-9.0) Ur Specific [place] 1.010 (1.001-1.035) Urine Protein Negative (Negative) mg/dL Urine Glucose (UA) Negative (Negative) mg/dL Urine Ketones Negative (Negative) mg/dL Ur Blood (Man) Trace (Negative) Urine Nitrate Negative (Negative) Urine Bilirubin Negative (Negative) Urine Urobilinogen 0.2 (<2.0) mg/dL Leukocyte Esterase Rfl Trace H (Negative) VENANCIO/UL Urine RBC 0-2 (0-2) /hpf Urine WBC 0-5 (0-3) /hpf Ur Squamous Epith Cells None seen (Few) /hpf Urine Bacteria Rare /hpf Urine Casts 0-2 POC Urine HCG, Qual Negative (Negative) Imaging Data Attestation: I personally reviewed and interpreted this imaging study as follows: Radiologist's impression: STAT RAD CT abd/pelvis: No acute process. No intra-abdominal inflammatory stranding. Discharge Plan Discharge Clinical Impression: Right lower quadrant abdominal pain Patient Disposition: Home Condition: Stable Instructions: Antibiotic Form, Irritable Bowel Syndrome (ED), Constipation (ED), Abdominal Pain (ED) Additional Instructions: Continue Tylenol, ibuprofen, Bentyl as needed for further abdominal discomfort. Continue home nausea medicine as needed. Continue MiraLax/Dulcolax as needed for constipation. Increase fluid intake. Recommend electrolyte rich fluids, gatorade, pedialyte, body armour. Recommend clear liquids or bland diet until symptoms improve, such as bananas, rice, applesauce, toast, or crackers. Recommend keeping a food diary to determine if certain foods or aggravating your abdominal pain. Follow up with your GI doctor and/or primary care doctor for further evaluation. Return to the ED if you experience worsening or severe symptoms, unable to keep down food or drink, severe pain, fevers, rectal bleeding, vomiting blood, or any other symptoms of concern. Patient Language: [place] Prescriptions: No Action metoclopramide HCl [Reglan] 10 mg tablet 10 mg PO Q6H PRN (Reason: nausea and vomiting) Qty: 30 0RF Follow-up/Referrals: Shanthi,Tara Darden, [employer] [Primary Care Provider, Unknown] Time of Disposition: 01:04
[2025-02-16 00:05] VITALS: BP 133/97; PULSE 78; RESP 16; TEMP 36.7; O2SAT 97
[2025-02-16] MEDS: MORPHINE SULFATE (*CRX) 4 MG/ML INJ IV PUSH (00:22)
[2025-02-16] MEDS: KETOROLAC 30 MG/ML VIAL (*BKC) IV PUSH (01:14)
[2025-02-16] MEDS: DICYCLOMINE HCL 10 MG CAPSULE 20 MG PO (01:14)
[2025-02-16 01:26] VITALS: BP 142/99; PULSE 80; RESP 16; O2SAT 95
== END 2025-02-16 01:28 | disposition home or self-care (01) ==
PROVIDERS: Student in an Organized Health Care Education/Training Program; Emergency Provider Physician Assistant; PCP Nurse Practitioner Family
DX: R10.31 Right lower quadrant pain (principal); G89.29 Other chronic pain; K58.9 Irritable bowel syndrome, unspecified; M79.7 Fibromyalgia
CPT/HCPCS: 36415; 74177; 80053; 81001; 81025; 83690; 85025; 96374; 96375; 96376; 99284; A9270; J1885; J2270; J2405; Q9967